=== PATIENT | female | born 1965 | race Caucasian/White ===

== ENCOUNTER 2023-10-01 08:48 | Outpatient (CLI) | payer OTHER, SELFPAY ==
--- OUTSIDE RECORDS SUMMARY | 2023-10-01 08:55 | XMS_ITS ---
Author Organization [facility] Address [address] [place] [address] Care Team Providers Care Geological Engineer Name Role Phone Unavailable Unavailable Unavailable Surgery Details Not on file Complications Check Surgery Details section. Procedure Estimated Blood Loss Check Surgery Details section. Procedure Findings Check Surgery Details section. Procedure Specimens Taken Check Surgery Details section.
--- OUTSIDE RECORDS SUMMARY | 2023-10-01 08:55 | XMS_ITS | Clinical Summary ---
Author Organization [facility] Address [address] [place] [address] Care Team Providers Care Mesh Cutter Name Role Phone Catherine Reid APRN C.N.PKecia Primary Care Provi robert Source Comments Patient records contain information from all sites at [facility]. For routine questions regarding patient records, call [phone] during business hours, M-F 8:00 AM - 5:00 PM Central Time. Record requests for emergency care only can be directed to [phone] at any time.[facility] Allergies Active Allergy Reactions Criticality Noted Date Comments Erythromycin Rash 01/08/2012 Rash, Itching, dizziness, headache Metformin Palpitations 08/15/2022 Sulfa (Sulfonamide Antibiotics) Rash 01/08/2012 Rash, Itching, dizziness, headache Medications Medication Sig Dispensed Refills Start Date End Date Status ibuprofen (ADVIL,MOTRIN) 200 mg tablet Take 800 mg by mouth every 8 (eight) hours as needed. 07/20/2009 Active Accu-Chek Guide strips 2 test daily. 05/27/2019 Active acetaminophen (TYLENOL) 500 mg tablet Take 1,000 mg by mouth every 6 (six) hours as needed for pain. Active neomycin-polymyxin B-dexameth (MAXITROL) 3.5 mg/g-10,000 unit/g-0.1 % ophthalmic ointment Apply to both eyelids twice a day. 3.5 g 1 08/07/2021 Active Additional Information Patient taking differently: As needed, Apply to both eyelids twice a day., Reported on 11/16/2021 DME CPAP DME Order Active fluocinonide (LIDEX) 0.05 % ointmentIndication s:Eczema Apply 1 application topically 2 (two) times a day as needed for irritation or rash. Avoid face and groin. 30 g 1 11/16/2021 Active cholecalciferol (Vitamin D3) 50 mcg (2,000 Unit) tablet Take 100 mcg by mouth daily. Active ascorbic acid, vitamin C, (Vitamin C) 1,000 mg tablet Take 1,000 mg by mouth daily. Active zinc gluconate 50 mg tablet Take 50 mg by mouth daily with breakfast. Active fexofenadine (RAUL) 180 mg tablet Take 180 mg by mouth daily as needed for allergies. Active blood sugar diagnostic strips (Accu-Chek Guide test strips) 1 test daily. 100 test 3 03/25/2023 03/24/2024 Active lancetsIndications :Diabetes Mellitus Type 2 (HCC) Test two times a day 200 each 3 03/25/2023 Active valACYclovir (VALTREX) 1000 mg tablet Take 1 tablet (1,000 mg total) by mouth 3 (three) times a day. 21 tablet 08/21/2023 Active Active Problems Problem Noted Date Diagnosed Date Body Mass Index 40.0 To 44.9 Adult 12/03/2022 Carpal Tunnel Syndrome Bilateral 02/21/2020 Diabetes Mellitus Type 2 02/17/2020 Loss Hearing Sensorineural Bilateral 02/17/2018 Tinnitus Bilateral 02/17/2018 Eczema 02/17/2015 Palpitations 01/24/2015 Overview (02/12/2017): Probably due to undiagnosed sleep apnea. Apnea Sleep Obstructive 12/19/2014 Obesity Body Mass Index 30-39.9 Adult 12/19/2014 Myopia 03/13/2010 Fibrocystic Breast Bilateral 02/03/2009 Cyst Ganglion 06/24/2008 Resolved Problems Problem Noted Date Diagnosed Date Resolved Date COVID-19 Infection 01/08/2021 3 Need Vaccine Immunization 03/17/2019 Encounters Date Type Department Care Team Description 09/16/2023 Orders Only [facility] MNT Catherine Reid, JAYME, C.N.P. Diabetes Mellitus Type 2 (HCC) 08/21/2023 4:30 PM CDT Office Visit Department of Family Medicine, [facility], in [place], [place] [address] [phone] Jaimee Jenkins P.A.-C., P.A. Rash Face (Primary Dx) 08/21/2023 Nurse Triage Department of Family Medicine, [facility], in [place], [place] [address], [place] [phone] Luisa Cheung R.N. Skin Redness from Last 3 Months Immunizations Name Administration Dates Next Due DTaP (Infanrix, Tripedia) 03/23/2008 HepB, Unspecified 12/31/2005 Influenza (IM) Preservative Free 11/28/2008,12/09 Influenza, Unspecified 12/08/2018,2017,01/01/2017,2015,12/09/2014,11/27/2010 PPSV23 11/18/2006 RZV (SHINGRIX) 08/13/2019,03/17/2019 Tdap 02/18/2019,03/23/2008 influenza LAIV (Nasal) (2 ye ars through 49 years) 01/08/2006 influenza vaccine quad (FLUZONE/FLUARIX) (6 months and older)(PF) 12/28/2019 Family History Medical History Relation Name Comments Breast cancer Aunt 1 Maternal Breast cancer Aunt 2 Paternal Alcohol abuse Brother Tr Diabetes Brother Tr Sleep apnea Brother Tr Basal cell carcinoma Father Ovidio COPD Father Ovidio Clotting disorder Father Ovidio Coronary artery disease Father Ovidio Hyperlipidemia Father Ovidio Hypertension Father Ovidio Idiopathic pulmonary fibrosis Father Ovidio Rosacea Father Ovidio Skin cancer Father Ovidio 70 years old at diagnosis Stroke Father Ovidio Breast cancer Father's Sister Millicent 75 yrs old at diagnosis Diabetes Grandmother Maternal Stroke Maternal Grandfather Se Acne Mother Josie Coronary artery disease Mother Josie Depression Mother Ojsie Hypertension Mother Josie Migraines Mother Josie Transient ischemic attack Mother Josie Breast cancer Mother's Sister 1 Heide 75 yrs ol d at diagnosis Rheum arthritis Mother's Sister 2 Catarina Heart attack Paternal Grandfather Stroke Paternal Grandmother Migdalia Acne Sister Mendy Hyperthyroidism Sister Mendy Rosacea Sister Mendy Thyroid disease Sister Mendy Relation Name Status Comments Aunt 1 Maternal Aunt 2 Paternal Brother Tr Nolan Father's Sister Millicent Grandmother Maternal Maternal Grandfather Se Maternal Grandmother Mother Josie Mother's Sister 1 Heide Mother's Sister 2 Catarina Paternal Grandfather Paternal Grandmother Migdalia Sister Mendy Social History Tobacco Use Types Packs/Day Years Used Date Smoking Tobacco: Former Cigarettes 1.5 21.3 0 11/12/1982 - 02/21/2004 Smokeless Tobacco: Never Tobacco Cessation:Counseling Given: Not Answered Comments:I'm glad I quit, but probably have done more damage to my body due to weight gain after quitting Alcohol Use Standard Drinks/Week Comments No 0 (1 standard drink = 0.6 oz pur e alcohol) Humiliation, Afraid, Rape, and Kick questionnair e Answer Date Recorded Within the last year, have y ou been afraid of your partner or ex-partner? No 11/16/2021 Within the last year, have y ou been humiliated or emotionally abused in other ways by your partner or ex-partner? No Within the last year, have y ou been kicked, hit, slapped, or otherwise physically hurt by your partner or ex-partner? No 11/16/2021 Within the last year, have y ou been raped or forced to have any kind of sexual activity by your partner or ex-partner? No 11/16/2021 Social Connection and Isolat ion Panel [NHANES] Answer Date Recorded In a typical week, how many times do you talk on the phone with family, friends, or neighbors? Three times a week 11/16/2021 How often do you get togethe r with friends or relatives? Three times a week 11/16/2021 How often do you attend chur ch or restorationist services? More than 4 times per year 11/16/2021 Do you belong to any clubs o r organizations such as confucianism groups, unions, fraternal or athletic groups, or school groups? Yes 11/16/2021 How often do you attend meet ings of the clubs or organizations you belong to? More than 4 times per year 11/16/2021 Are you , , di vorced, , never , or living with a partner? 11/16/2021 AUDIT-C Answer Date Recorded Q1: How often do you have a drink containing alc ohol? Never 11/16/2021 Average Number of Drinks Not on file 022 Frequency of Binge Drinking Not on file 11/2021 Overall Financial Resource Strain (CARDIA) Answe r Date Recorded How hard is it for you to pa y for the very basics like food, housing, medical care, and heating? Not hard at all 11/27/2022 PHQ-2 Answer Date Recorded PHQ-2 Score 0 11/27/2022 [facility] of Occupat ional Health - Occupational Stress Questionnaire Answer Date Recorded Do you feel stress - tense, restless, nervous, or anxious, or unable to sleep at night because your mind is troubled all the time - these days? Only a little 11/16/2021 Exercise Vital Sign Answer Date Recorde d On average, how many days pe r week do you engage in moderate to strenuous exercise (like a brisk walk)? 2 days 11/27/2022 On average, how many minutes do you engage in exercise at this level? 50 min 11/27/2022 Hunger Vital Sign Answer Date Recorded Within the past 12 months, y ou worried that your food would run out before you got the money to buy more. Never true 11/28/19 Within the past 12 months, t he food you bought just didn't last and you didn't have money to get more. Never true 11/27/2022 PRAPARE - Transportation Answer Date Re corded In the past 12 months, has l ack of transportation kept you from medical appointments or from getting medications? No 11/09 In the past 12 months, has l ack of transportation kept you from meetings, work, or from getting things needed for daily living? No 11/27/2022 Nutrition Answer Date Recorded On average, how many serving s of fruits and vegetables do you eat per day (serving size is equal to 1 cup or approximately the size of a tennis ball)? 0-2 11/27/2022 Dental Answer Date Recorded Dental: Regular Dentist Yes 05/02/19 Employment Answer Date Recorded Employment status Employed and actively working without restrictions 11/27/2022 Housing Stability Answer Date Recorded What is your living situation today? I have a [facility] place to live 11/27/2022 Education Answer Date Recorded What is the highest level of school you have completed or the highest degree you have received? Some college, no degree 11/16/2021 Sex and Gender Information Value Date Recorded Sex Assigned at Female 02/13/2017 6:16 AM SOLUTION COORDINATOR Gender Identity Female 02/13/2017 6:16 AM SOLUTION COORDINATOR Sexual Orientation Straight 02/13/2017 6: 16 AM SOLUTION COORDINATOR Last Filed Vital Signs Vital Sign Reading Time Taken Comments Blood Pressure 116/77 08/21/2023 4:21 PM CDT Pulse 94 08/21/2023 4:21 PM CDT Temperature 36.6 ??C (97.9 ??F) 08/21/2023 4:21 PM CD T Respiratory Rate 18 08/30/2022 2:22 PM CDT Oxygen Saturation 96% 08/30/2022 2:22 PM CDT Inhaled Oxygen Concentration - - Weight 99.9 kg (220 lb 3.8 oz) 12/03/2022 1:52 P M CDT Height 157.3 cm (5' 1.93) 12/03/2022 1:52 PM CD T Body Mass Index 40.37 12/03/2022 1:52 PM CDT Plan of Treatment Health Maintenance Due Date Last Done Comments CT Colonography 1964 Cologuard 1964 FIT 1965 HIV Screening 1965 Hepatitis B Vaccines (2 of 3 - 19+ 3-dose series) 01/28/2006 12/31/2005 Depression Screening (Annual PHQ-2) 03/10/2023 Dilated Eye Exam 03/12/2023 03/12/2022 (Per formed elsewhere), 03/26/2021 (Performed elsewhere), 08/06/2019, Additional history exists Hemoglobin A1C 05/28/2023 11/27/2022, 0911/2021, 02/21/2021, Additional history exists Creatinine Level (Kidney Function Test) 11/28/2023 11/27/2022, 11/16/2021, 05/28/2020, Additional history exists Lipid (Cholesterol) Screening 11/28/2023 11/27/2022, 11/16/2021, 02/17/2020, Additional history exists Urine Albumin 11/28/2023 11/27/2022, 02/07, 02/23/2018, Additional history exists COVID-19 Vaccine (1 - 24 season) 2023 Postponed from 11/08/2022 (Patient Refused) Diabetic Office Visit with Foot Exam 12/04/2023 12/03/2022, 02/21/2021 Pneumococcal vaccine (0-64 years) (2 of 2 - PCV) 12/04/2023 11/18/2006 Postponed from 11/19/2007 (Patient Refused) Visit: Chronic Disease, age 18+ 12/04/2023 12/03/2022 Influenza Vaccine (#1) 2023 , 12/08/2018, 11/21/2017, Additional history exists Mammogram 01/02/2024 01/01/2023, 11/2021, 02/21/2021, Additional history exists Colonoscopy 02/12/2024 02/11/2014 Colorectal Cancer Screening 02/12/2024 Office Visit for Blood Pressure Check / Re-check 08/20/2024 08/21/2023 Cervical Cancer Screening 12/04/20272022, 12/03/2022, 02/16/2018, Additional history exists DTaP,Tdap,and Td Vaccines (4 - Td or Tdap) 02/18/2029 02/18/2019, 03/23/2008, 03/23/2008 Hepatitis C Screening Completed 02/13/2017 Zoster Vaccines Completed 08/13/2019, 03/17/2019 Procedures Procedure Name Priority Date/Time Associated Diagnosis Comments BI BREAST SCREENING BILATERAL WITH TOMOSYNTHESIS RAD - Routine (most inpatients and all outpatients) 01/01/2023 3:13 PM CDT Screening Mammogram Breast Cancer HPV WITH GENOTYPING, PCR, THINPREP Routine 12/03/2022 2:43 PM CDT HEMOGLOBIN A1C, B Routine 11/27/2022 7:1 8 AM CDT Diabetes Mellitus Type 2 (HCC) LIPID PANEL, S Routine 11/27/2022 7:18 AM CDT Diabetes Mellitus Type 2 (HCC) Screening Lipid BASIC METABOLIC PANEL, S/P Routine 11/27/2022 7:18 AM CDT Diabetes Mellitus Type 2 (HCC) ALBUMIN, RANDOM, U Routine 11/27/2022 7: 13 AM CDT Diabetes Mellitus Type 2 (HCC) HCV AB SCRN W/REFLEX TO HCV PCR, S Routine 02/13/2017 5:01 PM SOLUTION COORDINATOR Health Maintenance Examination Adult from Last 3 Months or Most Recently Relevant to Health Maintenance Results * BI Breast Screening Bilateral with Tomosynthesis (01/01/2023 3:13 PM CDT) Anatomical Region Laterality Modality Breast, Breast Imaging RST L OS, Breast Imaging ARZ LOS, Breast Imaging FLA LOS Bilateral Mammography 01/01/2023 4:07 PM CDT Impressions 01/01/2023 4:08 PM CDT Negative. RECOMMENDATION: ??Annual Screening Mammogram ASSESSMENT: ??BI-RADS: 1: Negative. Narrative 01/01/2023 4:08 PM CDT EXAM: ??BI BREAST SCREENING BILATERAL WITH TOMOSYNTHESIS Current study was evaluated with a Computer Aided Detection (CAD) system. INDICATION: ??Screening mammogram. COMPARISON: ??Prior exam(s) were available and reviewed for comparison. DENSITY: ??b. There are scattered areas of fibroglandular density. FINDINGS: ??No mammographic findings of malignancy. Procedure Note Rahul Nicholas M.D. - 01/01/2023 EXAM: BI BREAST SCREENING BILATERAL WITH TOMOSYNTHESIS Current study was evaluated with a Computer Aided Detection (CAD) system. INDICATION: Screening mammogram. COMPARISON: Prior exam(s) were available and reviewed for comparison. DENSITY: b. There are scattered areas of fibroglandular density. FINDINGS: No mammographic findings of malignancy. IMPRESSION: Negative. RECOMMENDATION: Annual Screening Mammogram ASSESSMENT: BI-RADS: 1: Negative. Yue VALIENTE BI PROCEDURE S * HPV with Genotyping, PCR, ThinPrep (12/03/2022 2:43 PM CDT) HPV with Genotyping, ThinPrep, PCR Negative Negative 12/04/2022 5:41 PM CDT MKTO Comment: Negative for high risk HPV by nucleic acid amplification. ??The following high risk HPV types were not detected: 16, 18, 31, 33, 35, 39, 45, 51, 52, 56, 58, 59, 66, and 68 This result does not rule out HPV in the patient, as the sensitivity of the test depends on the timing of the specimen collection and the quality of the specimen. Result should be correlated with patient's history, clinical presentation, and EMPLOYMENT INTERVIEWER cytology report. 12/03/2022 2:43 PM CDT 12/04/2022 6:39 AM CDT Osmar Tran APRNNJessica LAB MICROBI OLOGY - GENERAL ORDERABLES [facility] [place] [address], [facility] MKTO [facility] [place] [address] * (ABNORMAL) Lipid Panel (11/27/2022 7:18 AM CDT) Pathologist [facility] Triglycerides 150(H) mg/dL 11/27/2022 8:15 AM CDT OWAT Comment: ----REFERENCE VALUE---- Normal: <150 mg/dL Borderline High: 150-199 mg/dL High: 200-499 mg/dL Very High: > or =500 mg/dL Cholesterol, Total 184 mg/dL 2022 8:15 AM CDT OWAT Comment: ----REFERENCE VALUE---- Desirable: < 200 mg/dL Borderline High: 200 - 239 mg/dL High: > or = 240 mg/dL Cholesterol, LDL, Calculated 113 mg/dL 11/27/2022 8:15 AM CDT OWAT Comment: ----REFERENCE VALUE---- Desirable: <100 mg/dL Above Desirable: 100-129 mg/dL Borderline High: 130-159 mg/dL High: 160-189 mg/dL Very High: >=190 mg/dL ----ADDITIONAL INFORMATION---- LDL cholesterol calculated using the Martínez/NIH equation. Cholesterol, HDL 44(L) >=50 mg/dL 11/28/19 8:15 AM CDT OWAT Cholesterol, Non-HDL, Calculated 140 mg/dL 11/27/2022 8:15 AM CDT OWAT Comment: ----REFERENCE VALUE---- Desirable: <130 mg/dL Above Desirable: 130-159 mg/dL Borderline High: 160-189 mg/dL High: 190-219 mg/dL Very High: > or =220 mg/dL Fasting (8 HR or more) yes 11/27/2022 7:32 AM CDT OWAT Blood (Blood, Venous) 11/27/2022 7:18 AM CDT 11/27/2022 7:32 AM CDT Catherine Reid APRN, C.N.P. LAB BLOOD A DD-ON Performing Organization Address [facility] de Phone Number [facility] [address] [address], [facility] OWAT [facility] in [place] [address] [place] [id number] * (ABNORMAL) Hemoglobin A1c (11/27/2022 7:18 AM CDT) Hemoglobin A1c, B 7.1(H) 4.2 - 5.6 % 11/27/2022 8:22 AM CDT OWAT Comment: Hemoglobin A1c values greater than or equal to 6.5 percent are diagnostic for diabetes mellitus. ??Diagnosis should be confirmed by repeat testing. ??In diabetic patients, HbA1c goals should be discussed with healthcare provider. Blood (Blood, Venous) 11/27/2022 7:18 AM CDT 11/27/2022 7:32 AM CDT Catherine Reid APRN, C.N.P. LAB BLOOD A DD-ON Performing Organization Address City/[facility]/ZIP Co de Phone Number [facility] [address] [place] [id number], [facility] OWAT [facility] in [place] [address] [place] [address] * (ABNORMAL) Basic Metabolic Panel (11/27/2022 7:18 AM CDT) Potassium, P 4.9 3.6 - 5.2 mmol/L 11/27/2022 8:15 AM CDT OWAT Sodium, P 140 135 - 145 mmol/L 11/27/2022 8:15 AM CDT OWAT Chloride, P 103 98 - 107 mmol/L 11/27/2022 8:15 AM CDT OWAT Bicarbonate, P 26 22 - 29 mmol/L 11/27/2022 8:15 AM CDT OWAT Anion Gap, P 11 7 - 15 11/27/2022 8:15 AM CDT OWAT BUN (Blood Urea Nitrogen), P 13 6 - 21 mg/dL 11/27/2022 8:15 AM CDT OWAT Creatinine 0.79 0.59 - 1.04 mg/dL 11/27/2022 8:15 AM CDT OWAT Estimated GFR (eGFR) 87 >=60 mL/min/BSA 11/27/2022 8:15 AM CDT OWAT Comment: Estimated GFR calculated using the 2020 CKD_EPI creatinine equation. Calcium, Total, P 9.5 8.6 - 10.0 mg/dL 11/27/2022 8:15 AM CDT OWAT Glucose, P 171(H) 70 - 140 mg/dL 11/27/2022 8:15 AM CDT OWAT Blood (Blood, Venous) 11/27/2022 7:18 AM CDT 11/27/2022 7:32 AM CDT Catherine Reid APRN C.N.PKecia LAB BLOOD A DD-ON [facility] [address] [place] [address], [facility] OWAT [facility] [place] [address] [place] [address] * Albumin, Random, Urine (11/27/2022 7:13 AM CDT) Microalbumin <12.0 mg/L 11/27/2022 8:37 AM CDT OWAT Comment:If clinically indica gabrielle, contact the lab for additional testing. Creatinine 135 mg/dL 11/27/2022 8:37 AM CDT OWAT Albumin/Creatinine Ratio <9 <25 mg/g 11/27/2022 8:37 AM CDT OWAT Comment: This ratio may not correspond with the reference range because one or both of the values used to calculate the ratio was above or below the quantification limits. Urine (Urine, Midstream) 11/27/2022 7:13 AM CDT 11/27/2022 7:51 AM CDT Catherine Reid APRN, C.N.P. LAB URINE O RDERABLES Performing Organization Address City/[facility]/ZIP Co de Phone Number [facility] [address] [place] [address], [facility] OWAT [facility] [place] [address] [place] [address] * HCV Ab Scrn w/Reflex to HCV PCR (02/13/2017 5:01 PM SOLUTION COORDINATOR) HCV Ab Screen, S Negative Negative 02/14/2017 8:25 AM SOLUTION COORDINATOR [facility] Comment:Jbmnmy-hi-yoodua rat io is <1.00. Blood (Blood, Venous) 02/13/2017 5:01 PM SOLUTION COORDINATOR 02/14/2017 7:09 AM SOLUTION COORDINATOR Yee Fernandez M.D. LAB MICROBIOLOGY - B LOOD ORDERABLES [facility] [address] [place] [address] from Last 3 Months or Most Recently Relevant to Health Maintenance Care Teams Mesh Cutter Relationship Specialty Start Date End Date Catherine Reid APRN, C.N.P. [address] [place] [phone] PCP - General 05/25/20
--- OUTSIDE RECORDS SUMMARY | 2023-10-01 08:55 | XMS_ITS | Encounter Summary ---
Author Organization [facility] Address [address] [place] [address] Care Team Providers Care Technology Advisor Name Role Phone Catherine Reid APRN, C.N.P. Primary Care Provi robert Encounter Details Date Type Department Care Team (Late st Contact Info) Description 09/16/2023 Orders Only [facility] PCP [facility] MNT Catherine Reid APRN, C.N.P. [address] [place] [phone] Diabetes Mellitus Type 2 (HCC) Social History Tobacco Use Types Packs/Day Years Used Date Smoking Tobacco: Former Cigarettes 1.5 21.3 0 11/12/1982 - 02/21/2004 Smokeless Tobacco: Never Comments:I'm glad I quit, bu t probably have done more damage to my [...] 11/16/2021 How often do you attend chur or worship services? More than 4 times per year 11/16/2021 Do you belong to any clubs o r organizations such as adventism groups, unions, fraternal or athletic groups, or [...] Answer Date Recorded PHQ-2 Score 0 11/27/2022 [facility] of Occupat ional Health - Occupational Stress [...] the money to buy more. Never true 09/20/20 23 Within the past 12 months, t he [...] your living situation today? I have a [facility] place to live 11/27/2022 Education Answer Date Recorded What is the highest level of school you have completed or the highest degree you have received? Some college, no degree 11/16/2021 Sex and Gender Information Value Date Recorded Sex Assigned at Female 02/13/2017 6:16 AM MAT MACHINE TENDER Gender Identity Female 02/13/2017 6:16 AM MAT MACHINE TENDER Sexual Orientation Straight 02/13/2017 6: 16 AM MAT MACHINE TENDER documented as of this encounter Plan of Treatment Scheduled Orders Name Type Priority Associated Diagnoses Orde r Schedule Albumin, Random, Urine Lab Routine Diabetes Mellitus Type 2 (HCC) Expected: 09/30/2023, Expires: 03/14/2024 Basic Metabolic Panel Lab Routine Diabetes Mellitus Type 2 (HCC) Expected: 09/30/2023, Expires: 03/14/2024 Lipid Panel Lab Routine Diabetes Mellitus Type 2 (HCC) Expected: 09/30/2023, Expires: 03/14/2024 documented as of this encounter Visit Diagnoses Diagnosis Diabetes Mellitus Type 2 (HCC) documented in this encounter Care Teams Technology Advisor Relationship Specialty Start Date End Date Catherine Reid APRN, C.N.P. [address], [place] [phone] PCP - General 05/25/20 documented as of this encounter
--- OUTSIDE RECORDS SUMMARY | 2023-10-01 08:55 | XMS_ITS | Encounter Summary ---
Author Organization [facility] Address [address] [place] [address] Care Team Providers Care Open Source Developer Name Role Phone Catherine Reid APRN C.N.PKecia Primary Care Provi robert Reason for Visit * Reason Comments Other Area below bottom li p is red, raised, has grown in size in the past few days, valtrex has helped in the past * Appointment Request (Routine) - Closed Specialty Diagnoses / Procedures Referred By Danielle t Referred To Contact Family Medicine Referral ID Status Reason Start Date Expiration Date Visits Re quested Visits Authorized [id number] Closed 08/21/2023 08/20/2024 1 1 Encounter Details Date Type Department Care Team (Late st Contact Info) Description 08/21/2023 4:30 PM CDT Office Visit Department of Family Medicine, [facility], in [place], [place] [address] [phone] Jaimee Jenkins, PLes., P.A. [address], [place] [phone] Rash Face (Primary Dx) Social History Tobacco Use Types Packs/Day Years [...] week 11/16/2021 How often do you attend [facility] or adventist services? More than 4 times per year 11/16/2021 Do you belong to any clubs o r organizations such as yarsani groups, unions, fraternal or athletic groups, or [...] Answer Date Recorded PHQ-2 Score 0 11/27/2022 [facility] - Occupational [...] your living situation today? I have a [facility] place to live 11/27/2022 Education Answer Date Recorded What is the highest level of school you have completed or the highest degree you have received? Some college, no degree 11/16/2021 Sex and Gender Information Value Date Recorded Sex Assigned at Female 02/13/2017 6:16 AM INSTRUMENTATION CHEMIST Gender Identity Female 02/13/2017 6:16 AM INSTRUMENTATION CHEMIST Sexual Orientation Straight 02/13/2017 6: 16 AM INSTRUMENTATION CHEMIST documented as of this encounter Last Filed Vital Signs Vital Sign Reading Time Taken Comments Blood Pressure 116/77 08/21/2023 4:21 PM CDT Pulse 94 08/21/2023 4:21 PM CDT Temperature 36.6 ??C (97.9 ??F) 08/21/2023 4:21 PM CD T Respiratory Rate - - Oxygen Saturation - - Inhaled Oxygen Concentration - - Weight - - Height - - Body Mass Index - - documented in this encounter Progress Notes * Jaimee Jenkins P.A.-C., P.A. - 08/21/2023 4:30 PM CDT SUBJECTIVE CHIEF COMPLAINT/REASON FOR VISIT Other (Area below bottom lip is red, raised, has grown in size in the past few days, valtrex has helped in the past) HISTORY OF PRESENT ILLNESS Migdalia Banerjee is a 58 y.o. female who presents for evaluation of facial rash. She reports that she developed a small spot just below her lip 2 days ago. This has worsened over the last couple of days. She has had similar issues in the past and has been treated with Valtrex in the past which has helped. She denies fevers/chills. Patient Active Problem List Diagnosis Apnea Sleep Obstructive Eczema Myopia Obesity Body Mass Index 30-39.9 Adult Palpitations Cyst Ganglion Fibrocystic Breast Bilateral Loss Hearing Sensorineural Bilateral Tinnitus Bilateral Diabetes Mellitus Type 2 (HCC) Carpal Tunnel Syndrome Bilateral Body Mass Index 40.0 To 44.9 Adult (HCC) CURRENT MEDICATIONS Current Outpatient Medications Medication Sig Dispense Refill Accu-Chek Guide strips 2 test daily. acetaminophen (TYLENOL) 500 mg tablet Take 1,000 mg by mouth every 6 (six) hours as needed for pain. ascorbic acid, vitamin C, (Vitamin C) 1,000 mg tablet Take 1,000 mg by mouth daily. blood sugar diagnostic strips (Accu-Chek Guide test strips) 1 test daily. 100 test 3 cholecalciferol (Vitamin D3) 50 mcg (2,000 Unit) tablet Take 100 mcg by mouth daily. DME CPAP DME Order fexofenadine (RAUL) 180 mg tablet Take 180 mg by mouth daily as needed for allergies. fluocinonide (LIDEX) 0.05 % ointment Apply 1 application topically 2 (two) times a day as needed for irritation or rash. Avoid face and groin. 30 g 1 ibuprofen (ADVIL,MOTRIN) 200 mg tablet Take 800 mg by mouth every 8 (eight) hours as needed. lancets Test two times a day 200 each 3 neomycin-polymyxin B-dexameth (MAXITROL) 3.5 mg/g-10,000 unit/g-0.1 % ophthalmic ointment Apply to both eyelids twice a day. (Patient taking differently: as needed. Apply to both eyelids twice a day.) 3.5 g 1 valACYclovir (VALTREX) 1000 mg tablet Take 1 tablet (1,000 mg total) by mouth 3 (three) times a day. 21 tablet 0 zinc gluconate 50 mg tablet Take 50 mg by mouth daily with breakfast. No current facility-administered medications for this visit. ALLERGIES/CONTRAINDICATIONS Allergies Allergen Reactions Erythromycin Rash Rash, Itching, dizziness, headache Metformin Palpitations Sulfa (Sulfonamide Antibiotics) Rash Rash, Itching, dizziness, headache OBJECTIVE BP 116/77 Pulse 94 Temp 36.6 ??C LMP 11/19/2017 (Approximate) PHYSICAL EXAMINATION General: No acute distress. Patient is polite and cooperative. Appropriately dressed and normal hygiene. Skin: vesicular rash overlying the lower lip, crossing the chelsy border. HEENT: Normocephalic. Pupils equal, conjunctiva clear. Musculoskeletal: Sensation intact, with no cyanosis, clubbing or edema to extremities. Mental Health: Alert and oriented. Normal thought form and content. ASSESSMENT / PLAN #1 Rash Face - Consistent with HSV. Will treat with Valtrex. She will follow-up with her PCP if symptoms persistor worsen. Electronically signed by: Jaimee Jenkins P.A.-C., P.A. 08/21/23 5:40 PM CDT documented in this encounter Plan of Treatment Not on file documented as of this encounter Visit Diagnoses Diagnosis Rash Face- Primary documented in this encounter Care Teams Open Source Developer Relationship Specialty Start Date End Date Catherine Reid APRN, C.N.P. [address] [place] [phone] PCP - General 05/25/20 documented as of this encounter
--- OUTSIDE RECORDS SUMMARY | 2023-10-01 08:55 | XMS_ITS | Encounter Summary ---
Author Organization [facility] Address [address] [place] [address] Care Team Providers Care Slinger Sequins Name Role Phone Catherine Reid APRN C.N.P. Primary Care Provi robert Reason for Visit * Reason Onset Date Comments Skin Redness 08/21/2023 Encounter Details Date Type Department Care Team (Late st Contact Info) Description 08/21/2023 Nurse Triage Department of Family Medicine, [facility], in [place], [place] [address] [place] [phone] Luisa Cheung, R.N. Skin Redness Social History Tobacco Use Types Packs/Day Years [...] How often do you attend chur or islam services? More than 4 times per year 11/16/2021 Do you belong to any clubs o r organizations such as mosque groups, unions, fraternal or athletic groups, or [...] Answer Date Recorded PHQ-2 Score 0 11/27/2022 [facility] - [...] your living situation today? I have a [facility] place to live 11/27/2022 Education Answer Date Recorded What is the highest level of school you have completed or the highest degree you have received? Some college, no degree 11/16/2021 Sex and Gender Information Value Date Recorded Sex Assigned at Female 02/13/2017 6:16 AM STONE MILL OPERATOR Gender Identity Female 02/13/2017 6:16 AM STONE MILL OPERATOR Sexual Orientation Straight 02/13/2017 6: 16 AM STONE MILL OPERATOR documented as of this encounter Miscellaneous Notes * Telephone Encounter - Luisa Cheung R.N. - 08/21/2023 9:59 AM CDT Chief Complaint / Reason for Call Patient is a 58 y.o. female calling regarding Skin Redness. Assessment Concern: Patient has a sore on face that is tender and weeping drainage. No fevers. Size of quarter. Present for: Friday Home cares tried: Monitoring Calling to request: appointment The recommended disposition is See a health care provider within 4 hours. Patient was scheduled for an acute appointment via One [employer] Scheduling. Reason for Disposition [1] Looks infected (spreading redness, pus) AND [2] diabetes mellitus or weak immune system (e.g., HIV positive, cancer chemo, splenectomy, organ transplant, chronic steroids) Protocols used: [id number] Care Advice Patient/Caregiver understands and will follow care advice?: Yes, able to teach back [id number] Nurse Luisa Connors Aug 21, 2023 10:02 AM Care Advice SEE HCP (OR PCP TRIAGE) WITHIN 4 HOURS: * IF OFFICE WILL BE OPEN: You need to be seen within the next 3 or 4 hours. Call your doctor (or FAMILY SERVICES COORDINATOR/PA) now or as soon as the office opens. * IF OFFICE WILL BE CLOSED AND NO PCP (PRIMARY CARE PROVIDER) SECOND-LEVEL TRIAGE: You need to be seen within the next 3 or 4 hours. A nearby Urgent Care Center (UCC) is often a good source of care. Another choice is to go to the ED. Go sooner if you become worse. * IF OFFICE WILL BE CLOSED AND PCP SECOND-LEVEL TRIAGE REQUIRED: You may need to be seen. Your doctor (or FAMILY SERVICES COORDINATOR/PA) will want to talk with you to decide what's best. I'll page the on-call provider now. If you haven't heard from the provider (or me) within 30 minutes, call again. NOTE: If on-call provider can't be reached, send to UCC or ED. NOTE TO TRIAGER: * Use nurse judgment to select the most appropriate source of care. * Consider both the urgency of the patient's symptoms AND what resources may be needed to evaluate and manage the patient. SOURCES OF CARE: * ED: Patients who may need surgery or hospital admission need to be sent to an ED. So do most patients with serious symptoms or complex medical problems. * UCC: Some UCCs can manage patients who are stable and have less serious symptoms (e.g., minor illnesses and injuries). The triager must know the UCC capabilities before sending a patient there. If unsure, call ahead. * OFFICE: If patient sounds stable and not seriously ill, consult PCP (or follow your office policy) to see if patient can be seen NOW in office. CALL BACK IF: * You become worse CARE ADVICE given per Sores (Adult) guideline. documented in this encounter Plan of Treatment Not on file documented as of this encounter Visit Diagnoses Not on filedocumented in this encounter Care Teams Slinger Sequins Relationship Specialty Start Date End Date Catherine Reid APRN, C.N.P. [address] [place] [phone] PCP - General 05/25/20 documented as of this encounter
--- OUTSIDE RECORDS SUMMARY | 2023-10-01 08:55 | XMS_ITS | Encounter Summary ---
Author Organization [facility] Address [address] [place] [address] Care Team Providers Care Campus Ambassador Name Role Phone Catherine Reid APRN C.NKeciaPKecia Primary Care Provi robert Encounter Details Date Type Department Care Team (Late st Contact Info) Description 01/23/2016 Historical Ophthalmology [facility] Ronald Vera Jr., M.D. [address] [place] [phone] Social History Tobacco Use Types Packs/Day Years Used Date Smoking Tobacco: Never Assessed Sex and Gender Information Value Date Recorded Sex Assigned at Female 02/13/2017 6:16 AM VASCULAR NURSE Gender Identity Female 02/13/2017 6:16 AM VASCULAR NURSE Sexual Orientation Straight 02/13/2017 6: 16 AM VASCULAR NURSE documented as of this encounter Progress Notes * Ronald Vera M.D. - 01/23/2016 2:50 PM CST Eye General CHIEF COMPLAINT CE HISTORY OF PRESENT ILLNESS Here for an exam as has been three years. About 6 wks ago had an incident when reading a book and her eyes got blurry for a while. removed glasses, put them on. Nothing cleared them up. Just has not seen as well since that time. Sometimes her eyes will water for no reason and her eyes will also itch really bad. IMPRESSION / REPORT / PLAN #1 Myopia, presbyopia MR #2 ? Eyestrain Think blink. Avoid fans. Avoid glare RTO 1 year DIAGNOSIS #1 Myopia, presbyopia #2 ? Eyestrain CDM Reports - EYEGEN Id: [id number] Status: Fnl documented in this encounter Plan of Treatment Not on file documented as of this encounter Visit Diagnoses Not on filedocumented in this encounter Additional Health Concerns Infection Onset Date Last Indicated Resolved Time COVID19 Pending 12/21/2019 12/21/2019 12/22/2019 4 :09 AM CDT COVID19 Pending 12/14/2020 12/15/2020 12/16/2020 8 :27 AM CDT COVID19 Pending 01/07/2021 01/07/2021 01/07/2021 1 0:59 PM CDT COVID19 Comment:Patient has met criteria for release from isolation. Please see nursing note for further details. ?? Janina Eugene R.N. 01/07/2021 01/07/2021 01/16/2021 3:[address] documented as of this encounter Care Teams Campus Ambassador Relationship Specialty Start Date End Date Catherine Reid APRN, C.N.P. [address] [place] [phone] PCP - General 05/25/20 documented as of this encounter
--- OUTSIDE RECORDS SUMMARY | 2023-10-01 08:55 | XMS_ITS | Referral Summary ---
Author Organization [facility] Address [address] [place] [address] Care Team Providers Care Television Agent Name Role Phone Catherine Reid APRN, C.N.P. Primary Care Provi robert Source Comments Patient records contain information from all sites at [facility]. For routine questions regarding patient records, call [phone] during business hours, M-F 8:00 AM - 5:00 PM Central Time. Record requests for emergency care only can be directed to [phone] at any time.[facility] Encounters Date Type Department Care Team Description 09/16/2023 Orders Only [facility] PCP [facility] MNT Catherine Reid APRN, C.N.P. Diabetes Mellitus Type 2 (HCC) 08/21/2023 4:30 PM CDT Office Visit Department of Family [facility], [facility], in [place], [place] [address] [place] [phone] Jaimee Jenkins P.A.-C., P.A. Rash Face (Primary Dx) 08/21/2023 Nurse Triage Department of Family [facility], [facility], in [place], [place] [address] [place] [phone] Luisa Cheung R.N. Skin Redness from Last 3 Months Allergies Active Allergy Reactions Criticality Noted Date [...] by mouth daily with breakfast. Active fexofenadine (RUAL) 180 mg tablet Take 180 mg by [...] Infection 01/08/2021 3 Need Vaccine Immunization 03/17/2019 Immunizations Name Administration Dates Next Due DTaP (Infanrix, Tripedia) 03/23/2008 HepB, Unspecified 12/31/2005 Influenza (IM) Preservative Free 11/28/2008,12/09 Influenza, Unspecified 12/08/2018,2017,01/01/2017,2015,12/09/2014,11/27/2010 PPSV23 11/18/2006 RZV (SHINGRIX) 08/13/2019,03/17/2019 Tdap 02/18/2019,03/23/2008 influenza LAIV (Nasal) (2 ye ars through 49 years) 01/08/2006 influenza vaccine quad (FLUZONE/FLUARIX) (6 months and older)(PF) 12/28/2019 Social History Tobacco Use Types Packs/Day Years [...] How often do you attend chur or amish services? More than 4 times per year 11/16/2021 Do you belong to any clubs o r organizations such as catholic groups, unions, fraternal or athletic groups, or [...] Answer Date Recorded PHQ-2 Score 0 11/27/2022 [facility] Occupat ional Health - [...] your living situation today? I have a [facility] place to live 11/27/2022 Education Answer Date Recorded What is the highest level of school you have completed or the highest degree you have received? Some college, no degree 11/16/2021 Sex and Gender Information Value Date Recorded Sex Assigned at Female 02/13/2017 6:16 AM BANDER OPERATOR Gender Identity Female 02/13/2017 6:16 AM BANDER OPERATOR Sexual Orientation Straight 02/13/2017 6: 16 AM BANDER OPERATOR Last Filed Vital Signs Vital Sign Reading [...] 12/03/2022 1:52 PM CDT Plan of Treatment Not on file Procedures Procedure Name Priority Date/Time Associated Diagnosis [...] HCV PCR, S Routine 02/13/2017 5:01 PM BANDER OPERATOR Health Maintenance Examination Adult from Last 3 [...] Screening Mammogram ASSESSMENT: BI-RADS: 1: Negative. Yue Laboy M.D. [facility] BI PROCEDURE S * HPV with Genotyping, [...] correlated with patient's history, clinical presentation, and [facility]HER cytology report. 12/03/2022 2:43 PM CDT 12/04/2022 6:39 AM CDT Osmar Tran APRNNJessica LAB [facility] - GENERAL ORDERABLES [facility] [address] [place] [address], [facility] [address] [address] * (ABNORMAL) Lipid Panel (11/27/2022 7:18 AM CDT) Triglycerides 150(H) mg/dL 11/27/2022 8:15 AM CDT [...] Reid APRN C.N.PKecia LAB BLOOD A DD-ON [facility] [address] [place] [address], [place] [facility] [place] [address] [place] [address] * (ABNORMAL) Hemoglobin A1c (11/27/2022 7:18 AM [...] 7:18 AM CDT 11/27/2022 7:32 AM CDT Osmar Tran APRNNJessica LAB BLOOD A DD-ON [facility] [address] [place] [address], [facility] [place] [address] [place] [address] * (ABNORMAL) Basic Metabolic Panel (11/27/2022 7:18 [...] 7:18 AM CDT 11/27/2022 7:32 AM CDT Vaughn Tran APRN.N.P. LAB BLOOD A DD-ON Performing Organization Address [facility] Co de Phone Number [facility] [address] [place] [address], [place] [facility] [facility] [place] [address] [place] [address] * Albumin, Random, Urine (11/27/2022 7:13 AM [...] CDT 11/27/2022 7:51 AM CDT Catherine Reid APRN C.N.P. LAB URINE O RDERABLES Performing Organization Address City/[facility]/ZIP Co de Phone Number [facility] [address] [place] [address], [place] [facility] [facility] [place] [address], [place] [address] * HCV Ab Scrn w/Reflex to HCV PCR (02/13/2017 5:01 PM BANDER OPERATOR) HCV Ab Screen, S Negative Negative 02/14/2017 8:25 AM BANDER OPERATOR [facility] Comment:Xedoes-sa-rtdqyz rat io is <1.00. Blood (Blood, Venous) 02/13/2017 5:01 PM BANDER OPERATOR 02/14/2017 7:09 AM BANDER OPERATOR Yee Fernandez M.D. LAB MICROBIOLOGY - B LOOD ORDERABLES [facility] [address] [place] [id number] from Last 3 Months or Most Recently Relevant to Health Maintenance Care Teams Television Agent Relationship Specialty Start Date End Date Catherine Reid APRN, C.N.P. [address] [place] [phone] PCP - General 05/25/20
--- OUTSIDE RECORDS SUMMARY | 2023-10-01 08:55 | XMS_ITS | Clinical Summary ---
Author Organization [facility] Address [place], [place] [address] Care Team Providers Care Media Buyer Name Role Phone Ivania Mendiola Primary Care Provider Allergies Active Allergy Reactions Criticality Noted Date Comments Erythromycin Rash,Itching,Dizziness 02/09/2014 Sulfa (Sulfonamide Antibiotics) Rash,Itching,Dizziness 02/09/2014 Medications Medication Sig Dispensed Refills Start Date End Date Status ibuprofen (ADVIL) 200 mg tablet Take 200 mg by mouth 4 times daily if needed. Active multivitamin (MVI) tabletIndications: vitamin deficiency prevention Take 1 tablet by mouth once daily. Indications: VITAMIN DEFICIENCY PREVENTION Active ACETAMINOPHEN/PAMA BROM (MIDOL ORAL) Take by mouth. As needed Active HYDROcodone-acetam inophen, 5-325 mg, (NORCO) per tabletIndications: Trigger finger of right thumb Take 1-2 tablets by mouth every 4 hours if needed for Pain Max acetaminophen dose: 4000 mg in 24 hrs. 20 tablet 03/21/2017 Active Active Problems No known active problems Immunizations Name Administration Dates Next Due Pneumococcal Poly,23-Valent (Pneumovax) 11/19/19 07 Tdap 03/23/2008 Social History Tobacco Use Types Packs/Day Years Used Date Smoking Tobacco: Former Smokeless Tobacco: Never Sex and Gender Information Value Date Recorded Sex Assigned at Not on file Gender Identity Not on file Sexual Orientation Not on file Obstetrics History Last Filed Vital Signs Vital Sign Reading Time Taken Comments Blood Pressure 124/67 01/11/2020 8:49 AM TEXTILE TECHNOLOGIST Pulse 82 01/11/2020 9:02 AM TEXTILE TECHNOLOGIST Temperature 36.7 ??C (98.1 ??F) 01/11/2020 6:26 AM CS T Respiratory Rate 19 01/11/2020 6:26 AM TEXTILE TECHNOLOGIST Oxygen Saturation 98% 01/11/2020 9:02 AM TEXTILE TECHNOLOGIST Inhaled Oxygen Concentration - - Weight 100.4 kg (221 lb 5.5 oz) 01/11/2020 6:26 AM TEXTILE TECHNOLOGIST Height 158.8 cm (5' 2.5) 01/11/2020 6:26 AM TEXTILE TECHNOLOGIST Body Mass Index 39.84 01/11/2020 6:26 AM TEXTILE TECHNOLOGIST Plan of Treatment Health Maintenance Due Date Last Done Comments Depression screening for age 12+ 1976 HIV for age 15-65 01/19/1979 Hepatitis C screening for ag e 18-79 01/19/1982 Pap test for age 21-65 01/19/1985 Colonoscopy through age 75 01/19/2009 Lipids for age 45-75 01/19/2009 Mammogram for age 45-75 01/19/2009 Zoster (shingles) series for age 50+ (1 of 2) 01/19/2014 Tetanus booster 03/23/2018 03/23/2008 BMI (ht and wt on same day) for age 18+ 11/14/2018 11/14/2017 COVID-19 vaccine series (2022- season) 2022 Influenza for age 50-64 11/09/2023 Pneumococcal series for age 6-64 Aged Out 11/19/19 07 No longer eligible based on patient's age to complete this topic Tdap Completed 03/23/2008 Advance Directives * Full Code (Latest Code Status on File) Date Activated Date Inactivated Comments 02/11/2014 6:07 AM 02/11/2014 11:51 AM Care Teams Media Buyer Relationship Specialty Start Date End Date Ivania Mendiola PA PCP - General Physician Contact Center Engineer 11/10/18
== END 2023-10-01 08:49 | disposition home or self-care (01) ==
PROVIDERS: PCP Registered Nurse; Visit Provider Registered Nurse
DX: Z00.00 Encounter for general adult medical examination without abnormal findings (principal); E11.9 Type 2 diabetes mellitus without complications; Z13.6 Encounter for screening for cardiovascular disorders; Z13.29 Encounter for screening for other suspected endocrine disorder
CPT/HCPCS: 80053; 80061; 84443

== ENCOUNTER 2023-12-02 13:47 | Outpatient (CLI) | payer OTHER, SELFPAY ==
--- OUTSIDE RECORDS SUMMARY | 2023-12-02 13:50 | XMS_ITS | Clinical Summary ---
Author Organization [facility] Address [address] [place] [address] Care Team Providers Care Dynamite Packing Machine Feeder Name Role Phone Catherine Reid APRN C.N.PKecia Primary Care Provi robert Source Comments Patient records contain information from all sites at [facility]. For routine questions regarding patient records, call [phone] during business hours, M-F 8:00 AM - 5:00 PM Central Time. Record requests for emergency care only can be directed to [phone] at any time.[facility] Allergies Active Allergy Reactions Criticality Noted Date [...] Encounters Date Type Department Care Team Description 10/07/2023 Clinical Communication Department of Family Medicine, [facility], in [place], [place] [address] [address] Catherine Reid, JAMYE, C.N.P. 09/16/2023 Orders Only [facility] MNT Catherine Reid, ARBORIST, C.N.P. Diabetes Mellitus Type 2 (HCC) from Last 3 Months Immunizations Name Administration Dates Next Due DTaP (Infanrix, Tripedia) 03/23/2008 HepB, Unspecified 12/31/2005 Influenza, Unspecified 12/08/2018,2017,01/01/2017,2015,12/09/2014,11/27/2010 PPSV23 11/18/2006 RZV (SHINGRIX) 08/13/2019,03/17/2019 Tdap 02/18/2019,03/23/2008 influenza LAIV (Nasal) (2 ye ars through 49 years) 01/08/2006 influenza trivalent vaccine (6 months and older)(PF) 11/28/2008,12/29/2007 influenza vaccine quad (FLUZONE/FLUARIX) (6 months and [...] Coronary artery disease Mother Josie Depression Mother Josie Hypertension Mother Josie Migraines Mother Josie Transient ischemic attack Mother Josie Breast cancer Mother's Sister 1 Heide 75 yrs ol d at diagnosis Rheum arthritis Mother's Sister 2 Catarina Heart attack Paternal Grandfather Stroke Paternal Grandmother Migdalia Acne Sister Mendy Hyperthyroidism Sister Mendy Rosacea Sister Mendy Thyroid disease Sister Mendy Relation Name Status Comments Aunt 1 Maternal Aunt 2 Paternal Brother Tr Father Ovidio Father's Sister Millicent Grandmother Maternal Maternal Grandfather [...] often do you attend chur ch or nondenominational services? More than 4 times per year 11/16/2021 Do you belong to any clubs o r organizations such as advent groups, unions, fraternal or athletic groups, or [...] Answer Date Recorded PHQ-2 Score 0 11/27/2022 [facility]at [facility] - Occupational Stress Questionnaire Answer Date Recorded [...] your living situation today? I have a [facility] place to live 11/27/2022 Education Answer Date Recorded What is the highest level of school you have completed or the highest degree you have received? Some college, no degree 11/16/2021 Sex and Gender Information Value Date Recorded Sex Assigned at Female 02/13/2017 6:16 AM POWDERED METAL SUPERVISOR Gender Identity Female 02/13/2017 6:16 AM POWDERED METAL SUPERVISOR Sexual Orientation Straight 02/13/2017 6: 16 AM POWDERED METAL SUPERVISOR Last Filed Vital Signs Vital Sign Reading [...] Additional history exists Hemoglobin A1C 05/28/2023 11/27/2022, 11/2021, 02/21/2021, Additional history exists COVID-19 Vaccine ( season) 2023 Creatinine Level (Kidney Function Test) 11/28/2023 11/27/2022, 11/16/2021, 05/28/2020, Additional history exists Lipid (Cholesterol) Screening 11/28/2023 11/27/2022, 11/16/2021, 02/17/2020, Additional history exists Urine Albumin 11/28/2023 11/27/2022, 02/07, 02/23/2018, Additional history exists Diabetic Office Visit with Foot Exam 12/04/2023 12/03/2022, 02/21/2021 Pneumococcal vaccine (0-64 years) (2 of 2 - PCV) 12/04/2023 11/18/2006 Postponed from 11/19/2007 (Patient Refused) Visit: Chronic Disease, age 18+ 12/04/2023 12/03/2022 Influenza Vaccine (#1) 2023 , 12/08/2018, 11/21/2017, Additional history exists Mammogram 01/02/2024 01/01/2023, 09/0 11/2021, 02/21/2021, Additional history exists Colonoscopy 02/12/2024 [...] HCV PCR, S Routine 02/13/2017 5:01 PM POWDERED METAL SUPERVISOR Health Maintenance Examination Adult from Last 3 [...] ASSESSMENT: BI-RADS: 1: Negative. Yue Laboy M.D. Candice BI PROCEDURE S * HPV with Genotyping, [...] correlated with patient's history, clinical presentation, and RESIN COATER cytology report. 12/03/2022 2:43 PM CDT 12/04/2022 6:39 AM CDT Catherine Reid APRN, C.N.P. LAB MICROBI OLOGY - GENERAL ORDERABLES [facility] [address] [place] [address], [place] [address] [address] * (ABNORMAL) Lipid Panel (11/27/2022 7:18 AM [...] LAB BLOOD A DD-ON Performing Organization Address [facility] Co de Phone Number [facility] [address] [place] [address], [place] [facility] [place] [address] [address] * (ABNORMAL) Hemoglobin A1c (11/27/2022 7:18 AM [...] LAB BLOOD A DD-ON Performing Organization Address City/[facility]/ZIP Co de Phone Number [facility] [address] [place] [address], [place] [facility] [address] [place] [address] * (ABNORMAL) Basic Metabolic Panel (11/27/2022 7:18 [...] 11/27/2022 7:32 AM CDT Catherine Reid APRN C.N.P. LAB BLOOD A DD-ON [facility] [address] [address], [place] [facility] [address] [place] [address] * Albumin, Random, Urine (11/27/2022 7:13 AM [...] 11/27/2022 7:51 AM CDT Catherine Reid APRN, C.NKeciaP. LAB URINE O RDERABLES [facility] [address] [place] [address], [place] [facility] [facility] [place] [address] [place] [address] * HCV Ab Scrn w/Reflex to HCV PCR (02/13/2017 5:01 PM POWDERED METAL SUPERVISOR) HCV Ab Screen, S Negative Negative 02/14/2017 8:25 AM POWDERED METAL SUPERVISOR [facility] Comment:Rzenbc-ag-xwjxpq rat io is <1.00. Blood (Blood, Venous) 02/13/2017 5:01 PM POWDERED METAL SUPERVISOR 02/14/2017 7:09 AM POWDERED METAL SUPERVISOR Yee Fenrandez M.D. LAB MICROBIOLOGY - B LOOD ORDERABLES Performing Organization Address City/[facility]/ZIP Co de Phone Number [facility] [address] [place] [address] from Last 3 Months or Most Recently Relevant to Health Maintenance Care Teams Dynamite Packing Machine Feeder Relationship Specialty Start Date End Date Catherine Reid APRN, C.N.P. [address], [place] [address] PCP - General 05/25/20
--- OUTSIDE RECORDS SUMMARY | 2023-12-02 13:50 | XMS_ITS | Clinical Summary ---
Author Organization [facility] Address [place], [place] [address] Care Team Providers Care Second Miller Name Role Phone Ivania Mendiola Primary Care [...] Comments Blood Pressure 124/67 01/11/2020 8:49 AM ANALYST BUSINESS ANALYSIS Pulse 82 01/11/2020 9:02 AM ANALYST BUSINESS ANALYSIS Temperature 36.7 ??C (98.1 ??F) 01/11/2020 6:26 AM CS T Respiratory Rate 19 01/11/2020 6:26 AM ANALYST BUSINESS ANALYSIS Oxygen Saturation 98% 01/11/2020 9:02 AM ANALYST BUSINESS ANALYSIS Inhaled Oxygen Concentration - - Weight 100.4 kg (221 lb 5.5 oz) 01/11/2020 6:26 AM ANALYST BUSINESS ANALYSIS Height 158.8 cm (5' 2.5) 01/11/2020 6:26 AM ANALYST BUSINESS ANALYSIS Body Mass Index 39.84 01/11/2020 6:26 AM ANALYST BUSINESS ANALYSIS Plan of Treatment Health Maintenance Due Date [...] age 18+ 11/14/2018 11/14/2017 COVID-19 vaccine series ( season) 2023 Influenza for age 50-64 11/09/2023 Pneumococcal series for age 6-64 Aged Out 11/19/19 07 No longer eligible based on patient's age to complete this topic Tdap Completed 03/23/2008 Advance Directives * Full Code (Latest Code Status on File) Date Activated Date Inactivated Comments 02/11/2014 6:07 AM 02/11/2014 11:51 AM Care Teams Second Miller Relationship Specialty Start Date End Date Ivania Mendiola PA PCP - General Physician Pizza Maker 11/10/18
--- OUTSIDE RECORDS SUMMARY | 2023-12-02 13:51 | XMS_ITS ---
Author Organization [facility] Address [address] [place] [address] Care Team Providers Care Commercial Representative Name Role Phone Unavailable Unavailable Unavailable Surgery Details Not on file Complications Check Surgery Details section. Procedure Estimated Blood Loss Check Surgery Details section. Procedure Findings Check Surgery Details section. Procedure Specimens Taken Check Surgery Details section.
--- OUTSIDE RECORDS SUMMARY | 2023-12-02 13:51 | XMS_ITS | Encounter Summary ---
Author Organization [facility] Address [address] [place] [address] Care Team Providers Care Uniform Patrol Police Officer Name Role Phone Catherine Reid APRN C.NKeciaPKecia Primary Care Provi robert Encounter Details Date Type Department Care Team (Late st Contact Info) Description 01/23/2016 Historical Ophthalmology [facility] Ronald Vera Jr., M.D. [address] [place] [phone] Social History Tobacco Use Types Packs/Day Years Used Date Smoking Tobacco: Never Assessed Sex and Gender Information Value Date Recorded Sex Assigned at Female 02/13/2017 6:16 AM TELEPATHIST Gender Identity Female 02/13/2017 6:16 AM TELEPATHIST Sexual Orientation Straight 02/13/2017 6: 16 AM TELEPATHIST documented as of this encounter Progress Notes [...] ? Eyestrain CDM Reports - EYEGEN Id: [id number] Status: Fnl documented in this encounter Plan [...] documented as of this encounter Care Teams Uniform Patrol Police Officer Relationship Specialty Start Date End Date Catherine Reid APRN, C.N.P. [address] [place] [phone] PCP - General 05/25/20 documented as of this encounter
--- OUTSIDE RECORDS SUMMARY | 2023-12-02 13:51 | XMS_ITS | Encounter Summary ---
Author Organization [facility] Address [address] [place] [address] Care Team Providers Care Powerhouse Mechanic Apprentice Name Role Phone Catherine Reid APRN, C.N.P. Primary Care Provi robert Encounter Details Date Type Department Care Team (Late st Contact Info) Description 09/16/2023 Orders Only [facility] PCP [facility] MNT Catherine Reid APRN, C.N.P. [address] [place] [id number] Diabetes Mellitus Type 2 (HCC) Social History [...] How often do you attend chur or presybeterian services? More than 4 times per year 11/16/2021 Do you belong to any clubs o r organizations such as mandaen groups, unions, fraternal or athletic groups, or [...] Answer Date Recorded PHQ-2 Score 0 11/27/2022 [facility] Occupat ional Health - Occupational [...] your living situation today? [facility] a [facility] place to live 11/27/2022 Education Answer Date Recorded What is the highest level of school you have completed or the highest degree you have received? Some college, no degree 11/16/2021 Sex and Gender Information Value Date Recorded Sex Assigned at Female 02/13/2017 6:16 AM CRIMINALIST TECHNICIAN Gender Identity Female 02/13/2017 6:16 AM CRIMINALIST TECHNICIAN Sexual Orientation Straight 02/13/2017 6: 16 AM CRIMINALIST TECHNICIAN documented as of this encounter Plan of [...] (HCC) documented in this encounter Care Teams Powerhouse Mechanic Apprentice Relationship Specialty Start Date End Date Catherine Reid APRN, C.N.P. [address], [place] [address] PCP - General 05/25/20 documented as of this encounter
--- OUTSIDE RECORDS SUMMARY | 2023-12-02 13:51 | XMS_ITS | Encounter Summary ---
Author Organization [facility] Address [address] [place] [address] Care Team Providers Care Instructional Technology Facilitator Name Role Phone Catherine Reid APRN, C.N.P. Primary Care Provi robert Encounter Details Date Type Department Care Team (Late st Contact Info) Description 10/07/2023 Clinical Communication Department of Family Medicine, [facility] [place], in [place], [place] [address] [place] [address] Catherine Reid APRN, C.N.P. [address] [place] [address] Social History Tobacco Use Types Packs/Day Years [...] often do you attend chur ch or faith services? More than 4 times per year 11/16/2021 Do you belong to any clubs o r organizations such as moravian groups, unions, fraternal or athletic groups, or [...] Answer Date Recorded PHQ-2 Score 0 11/27/2022 [facility] of Occupat ional Health - Occupational [...] your living situation today? I have a [facility] place to live 11/27/2022 Education Answer Date Recorded What is the highest level of school you have completed or the highest degree you have received? Some college, no degree 11/16/2021 Sex and Gender Information Value Date Recorded Sex Assigned at Female 02/13/2017 6:16 AM AERONAUTICAL DRAFTER Gender Identity Female 02/13/2017 6:16 AM AERONAUTICAL DRAFTER Sexual Orientation Straight 02/13/2017 6: 16 AM AERONAUTICAL DRAFTER documented as of this encounter Plan of Treatment Not on file documented as of this encounter Visit Diagnoses Not on filedocumented in this encounter Care Teams Instructional Technology Facilitator Relationship Specialty Start Date End Date Catherine Reid APRN, C.N.P. [address] [place] [address] PCP - General 05/25/20 documented as of this encounter
--- OUTSIDE RECORDS SUMMARY | 2023-12-02 13:51 | XMS_ITS | Referral Summary ---
Author Organization [facility] Address [address] [place] [address] Care Team Providers Care Oil And Gas Specialist Name Role Phone Catherine Reid APRN, C.N.P. Primary Care Provi robert Source Comments Patient records contain information from all sites at [facility]. For routine questions regarding patient records, call [phone] during business hours, M-F 8:00 AM - 5:00 PM Central Time. Record requests for emergency care only can be directed to [phone] at any time.[facility] Encounters Date Type Department Care Team Description 10/07/2023 Clinical Communication Department of Family Medicine, [facility], in [place], [place] [address] [place] [address] Catherine Reid APRN, C.N.P. 09/16/2023 Orders Only [facility] Reid APRN, C.N.P. Diabetes Mellitus Type 2 (HCC) from Last 3 Months Allergies Active Allergy [...] often do you attend chur ch or confucianism services? More than 4 times per year 11/16/2021 Do you belong to any clubs o r organizations such as latter day groups, unions, fraternal or athletic groups, or [...] Answer Date Recorded PHQ-2 Score 0 11/27/2022 [facility] of Occupat ional Health - Occupational Stress [...] money to buy more. Never true 11/28/19 23 Within the past 12 months, t [...] your living situation today? I have a [facility] place to live 11/27/2022 Education Answer Date Recorded What is the highest level of school you have completed or the highest degree you have received? Some college, no degree 11/16/2021 Sex and Gender Information Value Date Recorded Sex Assigned at Female 02/13/2017 6:16 AM SOCIAL SECRETARY Gender Identity Female 02/13/2017 6:16 AM SOCIAL SECRETARY Sexual Orientation Straight 02/13/2017 6: 16 AM SOCIAL SECRETARY Last Filed Vital Signs Vital Sign Reading [...] HCV PCR, S Routine 02/13/2017 5:01 PM SOCIAL SECRETARY Health Maintenance Examination Adult from Last 3 [...] Screening Mammogram ASSESSMENT: BI-RADS: 1: Negative. Yue MEEKSG BI PROCEDURE S * HPV with Genotyping, [...] correlated with patient's history, clinical presentation, and PLAYER DEVELOPMENT MANAGER cytology report. 12/03/2022 2:43 PM CDT 12/04/2022 6:39 AM CDT Catherine Reid APRN, C.N.P. LAB MICROBI OLOGY - GENERAL ORDERABLES [facility] [address] [place] [address], [facility] [address] [address] [place] [address] * (ABNORMAL) Lipid Panel (11/27/2022 7:18 AM [...] Reid APRN C.N.PKecia LAB BLOOD A DD-ON [facility] [address] [place] [address], [facility] [place] [address] [place] [address] * (ABNORMAL) Hemoglobin A1c (11/27/2022 7:18 AM [...] 7:18 AM CDT 11/27/2022 7:32 AM CDT Fátima Tran APRNP. LAB BLOOD A DD-ON [facility] [address] [place] [address], [place] [facility] [address] [place] [address] * (ABNORMAL) Basic Metabolic Panel (11/27/2022 7:18 [...] 7:18 AM CDT 11/27/2022 7:32 AM CDT Fátima Tran APRNP. LAB BLOOD A DD-ON Performing Organization Address [facility] Co de Phone Number [facility] [address] [place] [address], [facility] [place] [address] [place] [address] * Albumin, Random, Urine (11/27/2022 7:13 AM [...] LAB URINE O RDERABLES Performing Organization Address [facility] Co de Phone Number [facility] [address] [place] [address], [place] [facility] [place] [address], [place] [address] * HCV Ab Scrn w/Reflex to HCV PCR (02/13/2017 5:01 PM SOCIAL SECRETARY) HCV Ab Screen, S Negative Negative 02/14/2017 8:25 AM SOCIAL SECRETARY [facility] [place] Comment:Lytljt-kf-znspku rat io is <1.00. Blood (Blood, Venous) 02/13/2017 5:01 PM SOCIAL SECRETARY 02/14/2017 7:09 AM SOCIAL SECRETARY Yee Fernandez M.D. LAB MICROBIOLOGY - B LOOD ORDERABLES Performing Organization Address City/[facility]/ZIP Co de Phone Number [facility] [address] [place] [address] from Last 3 Months or Most Recently Relevant to Health Maintenance Care Teams Oil And Gas Specialist Relationship Specialty Start Date End Date Catherine Reid APRN, C.N.P. [address] [phone] PCP - General 05/25/20
--- NOTE | 2023-12-02 14:00 | CRLHL7_ITS ---
For Patients: As a result of the Century Cures Act, medical imaging exams and procedure reports are released immediately into your electronic medical record. You may view this report before your referring provider. If you have questions, please contact your health care provider. BILATERAL SCREENING MAMMOGRAM WITH COMPUTER-AIDED DETECTION AND TOMOSYNTHESIS TECHNIQUE: CC and MLO views were obtained. These mammographic images have been obtained using full-field digital technique. These mammographic images were interpreted with the benefit of computer-aided detection. Breast Tomosynthesis was used in this interpretation. COMPARISON FILM: 01/01/23, 11/16/21, 02/21/21. FINDINGS: There are scattered areas of fibroglandular density. IMPRESSION: There is no radiographic evidence for malignancy. ASSESSMENT: BI-RADS Category 1: Negative RECOMMENDATION: Routine screening mammogram in 1 year. A lay language report of this examination will be provided to the patient. Michael Saez M.D. Diagnostic Radiologist [email or web address] SP/Dictated by: Michael Saez MD @ 12/08/2023 12:26:00 PM (Electronically Signed)
== END 2023-12-02 13:48 | disposition home or self-care (01) ==
LOC: MAMMO 13:48
PROVIDERS: PCP Registered Nurse; Visit Provider Registered Nurse
DX: Z12.31 Encounter for screening mammogram for malignant neoplasm of breast (principal)
CPT/HCPCS: 77063; 77067

== ENCOUNTER 2024-01-08 18:49 | Outpatient (CLI) | payer OTHER, SELFPAY ==
--- OUTSIDE RECORDS SUMMARY | 2024-01-08 18:52 | XMS_ITS | Clinical Summary ---
Author Organization [facility] Address [address] [place] [address] Care Team Providers Care Sawyer Cork Slabs Name Role Phone Catherine Reid APRN C.N.PKecia Primary Care Provi robert Source Comments Patient records contain information from all sites at [facility]. For routine questions regarding patient records, call [phone] during business hours, M-F 8:00 AM - 5:00 PM Central Time. Record requests for emergency care only can be directed to [phone] at any time.[facility] Allergies Active Allergy Reactions Criticality Noted Date Comments Erythromycin Rash 01/08/2012 Rash, Itching, dizziness, headache Metformin Palpitations 08/15/2022 Sulfa (Sulfonamide Antibiotics) Rash 01/08/2012 Rash, Itching, dizziness, headache Medications * This document contains information received from the source organization and may not represent a complete record from that organization. ibuprofen (ADVIL,MOTRIN) 200 mg tablet Take 800 mg by mouth every 8 (eight) hours as needed. 0 Active Accu-Chek Guide strips 2 test daily. 0 Active acetaminophen (TYLENOL) 500 mg tablet Take 1,000 mg by mouth every 6 (six) hours as needed for pain. Active neomycin-polymy connor B-dexameth (MAXITROL) 3.5 mg/g-10,000 unit/g-0.1 % ophthalmic ointment Apply to both eyelids twice a day. 3.5 g 1 2 Active Additional Information Patient taking differently: As needed, Apply to both eyelids twice a day., Reported on 11/16/2021 DME CPAP DME Order Active fluocinonide (LIDEX) 0.05 % ointmentIndicat ions:Eczema Apply 1 application topically 2 (two) times a day as needed for irritation or rash. Avoid face and groin. 30 g 1 2 Active cholecalciferol (Vitamin D3) 50 mcg (2,000 [...] strips) 1 test daily. 100 test 3 4 03/24/19 25 Active lancetsIndicati ons:Diabetes Mellitus Type 2 (HCC) Test two times a day 200 each 3 4 Active valACYclovir (VALTREX) 1000 mg tablet Take 1 tablet (1,000 mg total) by mouth 3 (three) times a day. 21 tablet 4 Active Active Problems Problem Noted Date Diagnosed [...] Encounters Date Type Department Care Team Description 01/08/2024 Nurse Triage Department of Family Medicine, [facility], in [place], [place] [address] [phone] FenJyoti thomas R.N. Urinary Symptom 12/30/2023 Clinical Communication Department of Family Medicine, [facility], in [place], [place] [address] [facility] [place] [phone] Catherine Reid, JAYME, C.N.P. Health Maintenance 12/09/2023 Orders Only [facility] PCP [facility] MNT Catherine Reid, JAYME, C.N.P. Screening Mammogram Breast Cancer from Last 3 Months Immunizations Name Administration [...] often do you attend chur ch or taoism services? More than 4 times per year 11/16/2021 Do you belong to any clubs o r organizations such as episcopalian groups, unions, fraternal or athletic groups, or [...] Answer Date Recorded PHQ-2 Score 0 11/27/2022 [facility] [place] of Occupat ional Health - Occupational Stress [...] have received? 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 agueda e Last Filed Vital Signs Vital Sign Reading [...] 3 - 19+ 3-dose series) 01/28/2006 12/31/2005 Pneumococcal vaccine (0-64 years) (2 of 2 - PCV) 11/19/2007 11/18/2006 Depression Screening (Annual PHQ-2) 03/10/2023 Dilated Eye Exam 03/12/2023 03/12/2022 (Per formed elsewhere), 03/26/2021 (Performed elsewhere), 08/06/2019, Additional history exists Hemoglobin A1C 05/28/2023 11/27/2022, 09/0 11/2021, 02/21/2021, Additional history exists COVID-19 Vaccine (1 - season) 2023 Creatinine Level (Kidney Function Test) 11/28/2023 11/27/2022, 11/16/2021, 05/28/2020, Additional history exists Lipid (Cholesterol) Screening 11/28/2023 11/27/2022, 11/16/2021, 02/17/2020, Additional history exists Urine Albumin 11/28/2023 11/27/2022, 02/07, 02/23/2018, Additional history exists Diabetic Office Visit with Foot Exam 12/04/2023 12/03/2022, 02/21/2021 Visit: Chronic Disease, age 18+ 12/04/2023 12/03/2022 Influenza Vaccine (#1) 2023 , 12/08/2018, 11/21/2017, Additional history exists Mammogram 01/02/2024 01/01/2023, 11/2021, 02/21/2021, Additional history exists Colonoscopy 02/12/2024 02/11/2014 Colorectal Cancer Screening 02/12/2024 Office Visit for Blood Pressure Check / Re-check 08/20/2024 08/21/2023 Cervical/Vaginal Cancer Screening 12/04/2027 12/03/2022, 12/03/2022, 02/16/2018, Additional history exists DTaP,Tdap,and Td Vaccines (4 - Td or Tdap) 02/18/2029 02/18/2019, 03/23/2008, 03/23/2008 Hepatitis C Screening Completed 02/13/2017 Zoster Vaccines Completed 08/13/2019, 03/17/2019 IPV Vaccines Aged Out No longer eligi ble based on patient's age to complete this topic Procedures Procedure Name Priority Date/Time Associated Diagnosis [...] HCV PCR, S Routine 02/13/2017 5:01 PM MC KAY STITCHER Health Maintenance Examination Adult from Last 3 [...] ASSESSMENT: BI-RADS: 1: Negative. Yue Laboy M.D. IMG BI PROCEDURES Final Result * HPV with Genotyping, PCR, ThinPrep (12/03/2022 [...] correlated with patient's history, clinical presentation, and GAS MAIN FITTER cytology report. 12/03/2022 2:43 PM CDT 12/04/2022 6:39 AM CDT us Catherine Reid APRN C.N.PKecia LAB MICROBIOLOGY - GENERAL ORDERABLES Final Result [facility] [address] [place] [address], [facility] [address] [place] [address] * (ABNORMAL) Lipid Panel (11/27/2022 7:18 AM [...] CDT Catherine Reid APRN, C.N.P. LAB BLOOD ADD-ON Fi nal Result [facility] [address] [address], [facility] in [place] [address] [address] * (ABNORMAL) Hemoglobin A1c (11/27/2022 7:18 AM [...] 7:18 AM CDT 11/27/2022 7:32 AM CDT us Catherine Reid APRN, C.N.P. LAB BLOOD ADD-ON Fi nal Result [facility] [address] [place] [address], [place] [facility] [place] [address] [place] [address] * (ABNORMAL) Basic Metabolic Panel (11/27/2022 7:18 [...] 7:18 AM CDT 11/27/2022 7:32 AM CDT us Catherine Reid APRN, C.N.P. LAB BLOOD ADD-ON Fi nal Result [facility] [address] [place] [address], [facility] [place] [address] [place] [address] * Albumin, Random, Urine (11/27/2022 7:13 AM [...] 7:13 AM CDT 11/27/2022 7:51 AM CDT us Catherine Reid APRN, C.N.PKecia LAB URINE ORDERABLE S Final Result Performing Organization Address [facility] Co de Phone Number [facility] [address] [place] [address], [facility] [place] [address] [place] [phone] * HCV Ab Scrn w/Reflex to HCV PCR (02/13/2017 5:01 PM MC KAY STITCHER) HCV Ab Screen, S Negative Negative 02/14/2017 8:25 AM MC KAY STITCHER [facility] Comment:Nqtxhu-fi-zicolv rat io is <1.00. Blood (Blood, Venous) 02/13/2017 5:01 PM MC KAY STITCHER 02/14/2017 7:09 AM MC KAY STITCHER us Yee Fernandez M.D. LAB MICROBIOLOGY - BLOOD ORD ERABLES Final Result [facility] [address] [place] [address] from Last 3 Months or Most Recently Relevant to Health Maintenance Insurance [facility] [place] [id number] Care Teams Sawyer Cork Slabs Relationship Specialty Start Date End Date Catherine Reid APRN, C.N.P. [address] [facility] [place] [phone] PCP - General 05/25/20
--- OUTSIDE RECORDS SUMMARY | 2024-01-08 18:52 | XMS_ITS | Encounter Summary ---
Author Organization [facility] Address [address] [place] [address] Care Team Providers Care Clamshell Operator Name Role Phone Catherine Reid APRN, C.N.P. Primary Care Provi robert Reason for Visit * Reason Onset Date Comments Health Maintenance 12/30/2023 Encounter Details Date Type Department Care Team (Latest Contact Info) Description 12/30/2023 Clinical Communication Department of Family Medicine, [facility], in [place], [place] [address] [phone] Catherine Reid APRN, C.N.P. [address], [place] [phone] Health Maintenance Social History Tobacco Use Types Packs/Day Years [...] How often do you attend chur or baptism services? More than 4 times per year [...] Answer Date Recorded PHQ-2 Score 0 11/27/2022 [facility] of Occupat ional Health - Occupational Stress [...] your living situation today? I have a [facility] place to live 11/27/2022 Education Answer Date Recorded What is the highest level of school you have completed or the highest degree you have received? 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 - 12/30/2023 1:41 PM CDT I reached out to the patient today via phone call and portal message and I was unable to reach the patient. This is the 1st contact by the [facility] team to schedule preventive care services. The preventive care topics I outreached about include: Diabetes Follow Up Visit Basic Metabolic Panel, Hemoglobin A1C, Lipid Panel, and Urine, Albumin The outcome of this communication includes: Left Message and Sent Portal Message The PHS team will contact the patient again in 2 weeks. Next Primary Care appointment: does not have a visit scheduled in Primary Care Last appointment with their PCP: 12/03/2022 Additional services offered: None Yesy Espino LPN Preventative Health Specialist documented in this encounter Plan of Treatment Not on file documented as of this encounter Visit Diagnoses Not on filedocumented in this encounter Care Teams Clamshell Operator Relationship Specialty Start Date End Date Catherine Reid APRN, C.N.P. [address] [place] [phone] PCP - General 05/25/20 documented as of this encounter
--- OUTSIDE RECORDS SUMMARY | 2024-01-08 18:52 | XMS_ITS | Encounter Summary ---
Author Organization [facility] Address [address] [place] [address] Care Team Providers Care Teacher Visually Impaired Name Role Phone Catherine Reid APRN C.N.P. Primary Care Provi robert Reason for Visit * Reason Onset Date Comments Urinary Symptom 01/08/2024 Encounter Details Date Type Department Care Team (Late st Contact Info) Description 01/08/2024 Nurse Triage Department of Family Medicine, , in [place], [place] [address] [place] [phone] Jyoti Russ R.N. [address] [place] [address] Urinary Symptom Social History Tobacco Use Types Packs/Day Years [...] often do you attend chur ch or baptist services? More than 4 times per year 11/16/2021 Do you belong to any clubs o r organizations such as gnosticism groups, unions, fraternal or athletic groups, or [...] Answer Date Recorded PHQ-2 Score 0 11/27/2022 [facility] of Occupat ional Health - Occupational Stress [...] your living situation today? I have a [facility] place to live 11/27/2022 Education Answer Date Recorded What is the highest level of school you have completed or the highest degree you have received? 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 - 01/08/2024 4:43 PM CDT Chief Complaint / Reason for Call Patient is a 58 y.o. female calling regarding Urinary Symptom. Assessment Concern: Urinary frequency, lower abdominal discomfort, possible low grade fever, general malaise and lower back pain although patient says she had chronic lower back pain and is unsure if anything is worse than usual or new. Present for: Today Home cares tried: Pushing fluids Calling to request: Treatment The recommended disposition is See a health care provider within 24 hours. Patient was warm transferred to, Bran, Patient Appointment Floorworker at the clinic for further assistance. Patient did not meet the qualifications of the Possible Urinary Tract Infection protocol. Patient did not meet protocol because she is diabetic . Reason for Disposition Urinating more frequently than usual (i.e., frequency) OR new-onset of the feeling of an urgent need to urinate (i.e., urgency) Protocols used: Urinary Bwctheox-LURZU-VC Care Advice Patient/Caregiver understands and will follow care advice?: Yes, able to teach back Urinary Pppffciz-TQKGQ-FB Nurse Jyoti Connors Jan 08, 2024 04:50 PM Care Advice SEE PCP WITHIN 24 HOURS: DRINK PLENTY OF LIQUIDS: * Drink plenty of liquids. It is important to stay well-hydrated. * A healthy adult should drink 8 cups (240 ml) or more of liquid each day. * How can you tell if you are drinking enough liquids? The goal is to keep the urine clear or light-yellow in color. If your urine is bright yellow or dark yellow, you are probably not drinking enough liquids. * Caution: Some medical problems require fluid restriction. CALL BACK IF: * Fever occurs * Unable to urinate and bladder feels full * You become worse CARE ADVICE given per Urinary Symptoms (Adult) guideline. documented in this encounter Plan of Treatment Not on file documented as of this encounter Visit Diagnoses Not on filedocumented in this encounter Care Teams Teacher Visually Impaired Relationship Specialty Start Date End Date Catherine Reid APRN, C.N.P. [address] [place] [address] PCP - General 05/25/20 documented as of this encounter
--- OUTSIDE RECORDS SUMMARY | 2024-01-08 18:52 | XMS_ITS ---
Author Organization [facility] Address [address] [place] [address] Care Team Providers Care Sexual Assault Counsellor Name Role Phone Unavailable Unavailable Unavailable Surgery Details Not on file Complications Check Surgery Details section. Procedure Estimated Blood Loss Check Surgery Details section. Procedure Findings Check Surgery Details section. Procedure Specimens Taken Check Surgery Details section.
--- OUTSIDE RECORDS SUMMARY | 2024-01-08 18:52 | XMS_ITS | Clinical Summary ---
Author Organization [facility] Address [place], [place] [address] Care Team Providers Care Bore Mill Operator For Plastic Name Role Phone Ivania Mendiola Primary Care Provider Unavailable Allergies Active Allergy Reactions Criticality Noted Date [...] Comments Blood Pressure 124/67 01/11/2020 8:49 AM GASTROINTESTINAL TECHNICIAN Pulse 82 01/11/2020 9:02 AM GASTROINTESTINAL TECHNICIAN Temperature 36.7 ??C (98.1 ??F) 01/11/2020 6:26 AM CS T Respiratory Rate 19 01/11/2020 6:26 AM GASTROINTESTINAL TECHNICIAN Oxygen Saturation 98% 01/11/2020 9:02 AM GASTROINTESTINAL TECHNICIAN Inhaled Oxygen Concentration - - Weight 100.4 kg (221 lb 5.5 oz) 01/11/2020 6:26 AM GASTROINTESTINAL TECHNICIAN Height 158.8 cm (5' 2.5) 01/11/2020 6:26 AM GASTROINTESTINAL TECHNICIAN Body Mass Index 39.84 01/11/2020 6:26 AM GASTROINTESTINAL TECHNICIAN Plan of Treatment Health Maintenance Due Date [...] age 18+ 11/14/2018 11/14/2017 COVID-19 vaccine series (2023- season) 2023 Influenza for age 50-64 11/09/2023 Pneumococcal series for age 6-64 Aged Out 11/19/19 07 No longer eligible based on patient's age to complete this topic Tdap Completed 03/23/2008 Advance Directives * Full Code (Latest Code Status on File) Date Activated Date Inactivated Comments 02/11/2014 6:07 AM 02/11/2014 11:51 AM Care Teams Bore Mill Operator For Plastic Relationship Specialty Start Date End Date Ivania Mendiola PA PCP - General Physician Licensed Veterinary Technician 11/10/18
--- OUTSIDE RECORDS SUMMARY | 2024-01-08 18:52 | XMS_ITS | Encounter Summary ---
Author Organization [facility] Address [address] [place] [address] Care Team Providers Care Academic Affairs Dean Name Role Phone Catherine Reid APRN C.NKeciaPKecia Primary Care Provi robert Encounter Details Date Type Department Care Team (Late st Contact Info) Description 01/23/2016 Historical Ophthalmology [facility] Ronald Vera Jr., M.D. [address] [place] [phone] Social History Tobacco Use Types Packs/Day Years Used Date Smoking Tobacco: Never Assessed Comments Unknown Sex and Gender Information Value Date Recorded Sex Assigned at Female 02/13/2017 6:16 AM APPLIANCE SALES ASSOCIATE Legal Sex Female 4:29 AM APPLIANCE SALES ASSOCIATE Gender Identity Female 02/13/2017 6:16 AM APPLIANCE SALES ASSOCIATE Sexual Orientation Straight 02/13/2017 6: 16 AM APPLIANCE SALES ASSOCIATE documented as of this encounter Progress Notes [...] ? Eyestrain CDM Reports - EYEGEN Id: [id number] Status: Fnl documented in this encounter Plan [...] documented as of this encounter Care Teams Academic Affairs Dean Relationship Specialty Start Date End Date Catherine Reid APRN, C.N.P. [address] [place] [phone] PCP - General 05/25/20 documented as of this encounter
--- OUTSIDE RECORDS SUMMARY | 2024-01-08 18:52 | XMS_ITS | Encounter Summary ---
Author Organization [facility] Address [address] [place] [address] Care Team Providers Care Supervisor Boilermaking Shop Name Role Phone Catherine Reid APRN, C.N.P. Primary Care Provi robert Reason for Referral * Outpatient (Routine) - Authorized Specialty Diagnoses / Procedures Referred By Contac t Referred To Contact Diagnoses Screening Mammogram Breast Cancer Procedures BI Breast Screening Bilateral with Tomosynthesis Catherine Reid APRN, C.N.P. [address] [place] [address] Phone: tel: fax: [facility] Referral ID Status Reason Start Date Expiration Date V isits Requested Visits Authorized [id number] Authorized 12/09/2023 12/08/2024 1 1 Encounter Details Date Type Department Care Team (Late st Contact Info) Description 12/09/2023 Orders Only [facility] P[facility] MNT Catherine Reid APRN, C.N.P. [address] [place] [address] Screening Mammogram Breast Cancer Social History Tobacco Use Types Packs/Day Years [...] often do you attend chur ch or congregation services? More than 4 times per year 11/16/2021 Do you belong to any clubs o r organizations such as yazdanism groups, unions, fraternal or athletic groups, or [...] Answer Date Recorded PHQ-2 Score 0 11/27/2022 [facility] of Occupat ional Health - Occupational [...] your living situation today? I have a [facility] place to live 11/27/2022 Education Answer Date Recorded What is the highest level of school you have completed or the highest degree you have received? 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 [address] [place] [phone] PCP - General 05/25/20 documented as of this encounter
--- OUTSIDE RECORDS SUMMARY | 2024-01-08 18:52 | XMS_ITS | Encounter Summary ---
Author Organization [facility] Address [address] [place] [address] Care Team Providers Care Tissue Inserter Name Role Phone Catherine Reid APRN, C.N.P. Primary Care Provi robert Encounter Details Date Type Department Care Team (Late st Contact Info) Description 10/07/2023 Clinical Communication Department of Family Medicine, [facility], in [place], [place] [address] [place] [address] Catherine Reid APRN, C.N.P. [address] [place] [address] Social History Tobacco Use Types [...] often do you attend chur ch or lutheran services? 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 [address] [place] [phone] PCP - General 05/25/20 documented as of this encounter
--- OUTSIDE RECORDS SUMMARY | 2024-01-08 18:52 | XMS_ITS | Referral Summary ---
Author Organization [facility] Address [address] [place] [address] Care Team Providers Care Groundskeeper Name Role Phone Catherine Reid APRN, C.N.P. Primary Care Provi robert Source Comments Patient records contain information from all sites at [facility]. For routine questions regarding patient records, call [phone] during business hours, M-F 8:00 AM - 5:00 PM Central Time. Record requests for emergency care only can be directed to [phone] at any time.[facility] Encounters Date Type Department Care Team Description 01/08/2024 Nurse Triage Department of Family Medicine, [facility], in [place], [place] [address] [phone] Jyoti Russ R.N. Urinary Symptom 12/30/2023 Clinical Communication Department of Family Medicine, [facility], in [place], [place] [address] [phone] Catherine Reid APRN, C.N.P. Health Maintenance 12/09/2023 Orders Only [facility] Reid APRN, C.N.P. Screening Mammogram Breast Cancer from Last 3 Months Allergies Active Allergy [...] often do you attend chur ch or hinduism services? More than 4 times per year 11/16/2021 Do you belong to any clubs o r organizations such as anabaptism groups, unions, fraternal or athletic groups, or [...] Answer Date Recorded PHQ-2 Score 0 11/27/2022 [facility] - Occupational Stress [...] your living situation today? I have a [facility] place to live 11/27/2022 Education Answer Date Recorded What is the highest level of school you have completed or the highest degree you have received? Some college, no degree 11/16/2021 Comments No Sex and Gender Information Value Date Recorded Sex Assigned at Female 02/13/2017 6:16 AM [employer] DEVELOPER Legal Sex Female 4:29 AM [employer] DEVELOPER Gender Identity Female 02/13/2017 6:16 AM [employer] DEVELOPER Sexual Orientation Straight 02/13/2017 6: 16 AM [employer]GNOS DEVELOPER Occupation Industry Job Start Date Job End [...] HCV PCR, S Routine 02/13/2017 5:01 PM [employer] DEVELOPER Health Maintenance Examination Adult from Last 3 [...] Annual Screening Mammogram ASSESSMENT: BI-RADS: 1: Negative. us Yue Laboy M.D. IMG BI PROCEDURES Final [...] correlated with patient's history, clinical presentation, and ROOM CLEANER cytology report. 12/03/2022 2:43 PM CDT 12/04/2022 6:39 AM CDT us Catherine Reid APRN, C.N.P. LAB MICROBIOLOGY - GENERAL ORDERABLES Final Result [facility] [address] [place] [address], [facility] [address] [address] * (ABNORMAL) Lipid Panel (11/27/2022 7:18 AM [...] C.N.P. LAB BLOOD ADD-ON Fi nal Result [facility] [address] [facility] [place] [address], [place] [facility] [place] [address] [place] [address] * (ABNORMAL) Hemoglobin A1c (11/27/2022 7:18 AM [...] C.N.P. LAB BLOOD ADD-ON Fi nal Result [facility] [address] [place] [address], [facility] [place] [address] [place] [address] * (ABNORMAL) Basic Metabolic Panel (11/27/2022 7:18 AM CDT) Pathologist [facility] Potassium, P 4.9 3.6 - 5.2 mmol/L [...] C.N.P. LAB BLOOD ADD-ON Fi nal Result Performing Organization Address [facility]/ZIP Co de Phone Number [facility] [address] [place] [address], [facility] [place] [address] [place] [address] * Albumin, Random, Urine (11/27/2022 7:13 AM [...] 7:51 AM CDT us Catherine Reid APRN, C.N.P. LAB URINE ORDERABLE S Final Result Performing Organization Address [facility]/ZIP Co de Phone Number [facility] [address], [place] [address], [facility] [place] [address] [place] [address] [address] * HCV Ab Scrn w/Reflex to HCV PCR (02/13/2017 5:01 PM COGNOS DEVELOPER) HCV Ab Screen, S Negative Negative 02/14/2017 8:25 AM COGNOS DEVELOPER [facility] Comment:[id number]-tf-[id number] rat io is <1.00. Blood (Blood, Venous) 02/13/2017 5:01 PM [employer]GNOS DEVELOPER 02/14/2017 7:09 AM [employer]GNOS DEVELOPER us Yee Fernandez M.D. LAB MICROBIOLOGY - BLOOD ORD ERABLES Final Result [facility] [address] [place] [address] from Last 3 Months or Most Recently Relevant to Health Maintenance Insurance Ahorro Libre [facility] [address] [id number] Care Teams Groundskeeper Relationship Specialty Start Date End Date Catherine Reid APRN, C.N.P. [address] [phone] PCP - General 05/25/20
== END 2024-01-08 18:50 | disposition home or self-care (01) ==
LOC: NFLDUCREF 18:50
PROVIDERS: PCP Registered Nurse; Visit Provider Nurse Practitioner
DX: R30.0 Dysuria (principal)
CPT/HCPCS: 87086

== ENCOUNTER 2024-02-19 07:15 | Outpatient (CLI) | payer OTHER, SELFPAY ==
--- NOTE | 2024-02-19 08:35 | W.ANESCHARGE ---
Anesthesia Charges Start Date/Time Anesthesia Start Date: 02/19/24 Anesthesia Start Time: 08:05 Stop Date/Time Anesthesia Stop Date: 02/19/24 Anesthesia Stop Time: 08:36
--- NOTE | 2024-02-19 08:39 | W.ANESCHARGE ---
Anesthesia Charges Start Date/Time Anesthesia Start Date: 02/19/24 Anesthesia Start Time: 08:05 Stop Date/Time Anesthesia Stop Date: 02/19/24 Anesthesia Stop Time: 08:36
== END 2024-02-19 07:16 | disposition home or self-care (01) ==
LOC: OP CLINIC 07:16
PROVIDERS: PCP Registered Nurse; Visit Provider Surgery
DX: Z12.11 Encounter for screening for malignant neoplasm of colon (principal); K64.9 Unspecified hemorrhoids; K57.30 Diverticulosis of large intestine without perforation or abscess without bleeding
CPT/HCPCS: 00811; 45378; J2704

== ENCOUNTER 2024-03-12 14:41 | Outpatient (CLI) | payer OTHER, SELFPAY | END 2024-03-12 14:42 | disposition home or self-care (01) | PROVIDERS: PCP Registered Nurse; Visit Provider Registered Nurse | DX: M25.50 Pain in unspecified joint (principal) | CPT/HCPCS: 86038; 86039; 86140; 86200; 86431 ==

== ENCOUNTER 2024-04-22 15:15 | Outpatient (RCR) | payer OTHER, SELFPAY ==
--- NOTE | 2024-03-24 15:47 | OT.OPOE ---
OT Outpatient Ortho Eval OT Outpatient Ortho Eval* Start: 03/24/24 14:05 Freq: Status: Active Protocol: Document 03/24/24 14:05 CSS (Rec: 03/24/24 15:47 CSS [id number]) E-signed By Laura Corrigan, OTR/L OT OP Ortho Eval Details Complexity Complexity Low Insurance Information Insurance Information Workman's Comp Other Insurance [facility] Insurance Information Comments work comp claim number: [id number] Outpatient History/Precautions Current Condition/Medical Diagnosis Referring Provider Dr. 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 Pt notes difficulties with brushing teeth, donning and doffing underwear, pants, socks, bra, driving, and self -feeding. Pt feels left hand( dominant hand) is useless. Feels she is compensating a lot. She notes how rapid symptoms progressed and notes they progressed drastically. Notes difficulty with carrying items- gives example of carrying groceries. Notes L thumb is starting to lock and increased pain with pressure on thumb. Notes 4th digit on R hand is starting to lock randomly. Pt notes tip of L thumb gets numb and sometimes all fingers get numb. She notes waking up with numbness. States she has wrist splints for night and states that it caused more thumb pain in L hand. Pain Assessment Pain Pain Yes Pain Comments Rest: R: 0/10 L: 2/10 Activity (gripping): R: 6/10 L : 10/10 Range of Motion and Strength Wrist Range of Motion and Strength Wrist Range of Motion and Strength WNL in B wrists Hand/Finger/Thumb Range of Motion and Strength Hand/Finger/Thumb Range of Motion and L thumb IP flexion(before Strength locks): 33 degrees L 2nd-5th digits: WNL R digits: WNL (Pt does note that R 4th digit will randomly lock with flexion) Hand Pinch/Circular Knitter Helper Strength Hand Pinch/Circular Knitter Helper Strength Hand Pinch/Circular Knitter Helper Strength Left Hand,Right Hand Left Hand Circular Knitter Helper Strength Position 1 in Elbow 15 Flexion (lbs) Lateral Pinch Strength (lbs) 5 Three Point Pinch (lbs) 6 Tip Pinch Strength (lbs) 4 Right Hand Circular Knitter Helper Strength Position 1 in Elbow 25 Flexion (lbs) Lateral Pinch Strength (lbs) 12 Three Point Pinch (lbs) 11 Tip Pinch Strength (lbs) 7 OT Objective Data Hand Hand Dominance Left Observations/Posture/Limb Appearance Objective Observations noted increased swelling in L hand, specifically in L thumb Sensation Sensation Assessment Summary Comments notes varying numbness/ tingling in all finger tips; worse in AM Upper Extremity Special Tests Median Nerve-Carpal Tunnel Wrist Phalen Test Positive Left,Positive Right Wrist Tinel Test Positive Left,Positive Right Dexterity Dexterity Dexterity Left Hand,Right Hand Left Hand Scoring Times 9-Hole Peg Hand Test Scoring Time ( 25 seconds) Right Hand Scoring Times 9-Hole Peg Hand Test Scoring Time ( 22 seconds) OT Problems Problems Problems Decreased Strength,Decreased Range of Motion,Decreased Dexterity,Pain,Sensory Sensitivity,Lifting,Gripping, Pinching Other Problems Writing,Opening Containers, Dressing,Computer,Fasteners, Sleeping Patient Potential Good Assessment Assessment Assessment Pt is a 59 year old female who is referred to OT with diagnosis with bilateral carpal tunnel. Pt notes increased pain, weakness, and limited dexterity in hands. She notes numbness/tingling in both hands. She notes and demonstrates locking in L thumb and R ring finger with gripping activity. These listed symptoms are impacting her ability to complete ADLs/ IADLs. Pt would benefit from ongoing skilled OT to decrease pain, increase strength and dexterity, and trial conservative management with locking digits to prevent trigger finger release surgery . Pt appears highly motivated and willing to participate in therapy and work on HEP in order to progress and meet goals. Occupational Therapy Treatment Plan - OP Potential Rehabilitation Potential Good Set Goals Goals Set with Patient Yes Goals Goals Goals to be met by 06/16/24: 1) Pt will note 0/10 pain in B hands with activity. 2) Pt will demonstrate increased L dewaterer operator strength to 30# or more. 3) Pt will note no numbness/ tingling in B hands for 3 consistent sessions. 4) Pt will note locking of thumb and ring finger decrease to 3x a day or less with gripping activities without oval 8 splint. 5) Pt will verbalize and demonstrate competency of HEP in order to progress and meet goals. Treatment Plan Treatment Plan Evaluation,Edema Control, Iontophoresis,Joint Mobilization,Manual Therapy, Splinting,Ultrasound, Therapeutic Exercise, Therapeutic Activities,Self Care/Home Management,Education Expected Frequency 1-2x Week Expected Duration 12 weeks Comment Summary Upper Extremity Functional Index(UEFI)- Home Program Home Program Home Program Initiated Home Program Specifics compression gloves on bilateral hands; oval 8 splint on L thumb and R ring finger; median nerve glides for both hands; ice Certification Certification Statement I Certify That: Therapy Services Provided, Therapy Plan Established, Therapy Plan Reviewed Certification Information Clinic ID # [id number] Initial Certification Date 03/24/24 Recertification Due Date 06/16/24 Provider Signature Required Yes Provider Signature Shows Agreement With POC & Medical Necessity Physician NPI Number Write NPI# Here Physician Comment/Change Comment or Changes Physician Signature & Date Requested Please Sign/Date Here
--- NOTE | 2024-06-16 10:36 | REH.OT ---
Pt had trigger finger release completed on L thumb on 05/19/24. Pt told to reach out if she had any therapy needs or request new order from ortho provider. Will d/c pt from OT at this time.
== END 2024-06-16 10:44 | disposition home or self-care (01) ==
PROVIDERS: PCP Registered Nurse; Visit Provider Family Medicine
DX: G56.03 Carpal tunnel syndrome, bilateral upper limbs (principal); R20.0 Anesthesia of skin; M25.549 Pain in joints of unspecified hand; R53.1 Weakness; Z51.89 Encounter for other specified aftercare
CPT/HCPCS: 97035; 97110; 97140; 97165; 97535; X5282

== ENCOUNTER 2024-05-19 06:22 | Day surgery (SDC) | payer OTHER, SELFPAY ==
[2024-05-19] VITALS (7 sets, daily range): BP systolic 114–130; BP diastolic 65–79; PULSE 75–87; RESP 16; TEMP 36.8–36.9; O2SAT 92–95
[2024-05-19] MEDS: BUPIVACAINE 0.5% 30 ML INJECTION (06:55)
[2024-05-19] MEDS: ETHYL CHLORIDE 1 APPLICATION 1 APPLIC TOPICAL (06:55)
[2024-05-19] MEDS: LIDOCAINE 1%-EPI 1:100,000 20 ML INFILTRATI (06:55)
--- NOTE | 2024-05-19 07:24 | PM.ORPRC ---
Procedure Note Date of procedure: 05/19/24 Procedure: PREOPERATIVE DIAGNOSIS: 1. Left thumb flexor tenosynovitis - trigger thumb POSTOPERATIVE DIAGNOSIS: 1. Left thumb flexor tenosynovitis - trigger thumb PROCEDURE: 1. Left thumb flexor tendon sheath open release (A1 domenica) SURGEON: Greyson Heart MD. MANAGER OF FINANCE: Clair Rodriguez PA-C ANESTHESIA: Local anesthetic 4ml via 50:50 mixture of 1% Lidocaine with epi and 0.5% marcaine plain EBL: 2ml IMPLANTS: None TOURNIQUET: None COMPLICATIONS: None evident INDICATIONS: The patient is a pleasant 59-year-old female who has experienced left thumb catching/triggering for number of months. It has progressively gotten worse. Given the failure of nonoperative management, and how this affects daily life, surgery was recommended. DESCRIPTION OF PROCEDURE: Following a thorough discussion of risks, benefits, and alternatives consent was obtained and the operative digit(s) was marked. The patient was brought to the operating room and placed supine on the operating table. Local anesthesia induction was undertaken in preop holding. No antibiotics were administered as this was planned to be a local case only. Proper time-out was performed identifying proper patient, site, and procedure. The operative extremity was prepped and draped in the appropriate sterile fashion using ChloraPrep. An incision was made on the palmar surface of the hand overlying the MCP joint region of the appropriate digit(s) respecting the palmar creases being cautious not to cross these perpendicularly. Sharp incision through the skin, and blunt dissection through subcutaneous tissue allowing protection of crossing neurologic structures. The A1 domenica was visualized directly. It was incised sharply with a 15 blade. It was released completely from its distal to proximal extent under direct visualization. The tendon was inspected and found to be mildly striated consistent with some friction. Otherwise, it was intact. The tendon was removed out of the wound, and further inspected. The patient was asked to manually flex and extend the digits and showed no further catching. The catching which was visualized after tourniquet inflation, was no longer evident with reproduction of a manual fist and relaxation. Closure was performed with 4-O nylon in interrupted fashion. Soft dressings were applied, and the patient was transferred to the recovery room in stable condition. PLAN: 1. Encourage elevation of the operative extremity. 2. Range of motion and icing of the fingers and hand/wrist as tolerated/needed. 3. Ibuprofen/acetaminophen and/or oxycodone as needed for pain control. 4. Follow up with PA visit in 12-16 days for wound check and suture removal.
== END 2024-05-19 08:00 | disposition home or self-care (01) ==
LOC: OR 06:22
PROVIDERS: PCP Registered Nurse; Visit Provider Orthopaedic Surgery Sports Medicine
PROC: (CPT 26055; principal; 2024-05-19 07:15)
DX: M65.312 Trigger thumb, left thumb (principal); M65.842 Other synovitis and tenosynovitis, left hand
CPT/HCPCS: 26055; J0665

== ENCOUNTER 2024-05-20 15:19 | Outpatient (CLI) | payer OTHER, SELFPAY | END 2024-05-20 15:20 | disposition home or self-care (01) | PROVIDERS: PCP Registered Nurse; Visit Provider Family Medicine | DX: R10.32 Left lower quadrant pain (principal) | CPT/HCPCS: 80053; 86140 ==

== ENCOUNTER 2024-08-10 11:16 | Outpatient (CLI) | payer OTHER, SELFPAY ==
--- NOTE | 2024-08-10 11:30 | CRLHL7_ITS ---
For Patients: As a result of the Century Cures Act, medical imaging exams and procedure reports are released immediately into your electronic medical record. You may view this report before your referring provider. If you have questions, please contact your health care provider. Indication: Right lateral neck lump Technique: Grayscale and color Doppler ultrasound of the right lateral neck soft tissues performed. Comparison: None Findings: Hypoechoic solid nodule is present with internal vascularity within the subcutaneous tissues which measures 8 x 4 x 6 millimeters. Impression: Indeterminate solid nodule right lateral neck soft tissues which measures 8 x 4 [address] should be considered for further evaluation. Dictated by Michael Saez MD @ 08/10/2024 10:02:47 PM (Electronically Signed)
== END 2024-08-10 11:17 | disposition home or self-care (01) ==
LOC: US 11:16
PROVIDERS: PCP Registered Nurse; Visit Provider Registered Nurse
DX: R22.1 Localized swelling, mass and lump, neck (principal)
CPT/HCPCS: 76536

== ENCOUNTER 2024-08-24 14:33 | Outpatient (CLI) | payer OTHER, SELFPAY ==
--- NOTE | 2024-08-24 15:00 | CRLHL7_ITS ---
For Patients: As a result of the Century Cures Act, medical imaging exams and procedure reports are released immediately into your electronic medical record. You may view this report before your referring provider. If you have questions, please contact your health care provider. Indication: Technique: Routine soft tissue neck protocol. Omnipaque 350, 104 mL. Comparison: None. Findings: Parotid glands: Normal. Accessory parotid tissue/gland extends bilaterally over the masseter muscles. Submandibular glands: Normal. Thyroid: Normal. Pharynx: Normal nasopharynx, oropharynx and hypopharynx. Larynx and trachea: Normal. Lymph nodes: Bilateral multifocal shotty scattered lymph nodes all have a short axis diameter of 9 millimeters are less with the largest nodes being the jugulodigastric lymph nodes. No extra capsular extension or abnormal enhancement. No dominant nodules. Vessels: Normal. Soft tissues: Normal. Bones: Normal. Paranasal and mastoid sinuses: Bilateral maxillary sinus scattered mucosal thickening. Skull base and visualized brain: Normal. Lung apices: Normal. Impression: 1. No pathologic abnormality is demonstrated. 2. Accessory parotid tissue/gland extends bilaterally over the masseter muscles. This is a normal finding. 3. Bilateral multifocal shotty lymph nodes are all within normal anatomic variation. No dominant lymph nodes. 4. Bilateral maxillary sinus scattered mucosal thickening Please note that all CT scans at this facility use dose modulation, iterative reconstruction, and/or weight-based dosing when appropriate to reduce radiation dose to as low as reasonably achievable. Dictated by Bal Alberto MD @ 08/24/2024 4:17:05 PM (Electronically Signed)
[2024-08-24 15:03] LABS: Creatinine* 0.6 mg/dL (0.5-1.5); Estimated Glomerular Filt Rate 103 ml/min
== END 2024-08-24 14:34 | disposition home or self-care (01) ==
LOC: CT 14:35
PROVIDERS: PCP Registered Nurse; Visit Provider Registered Nurse
DX: R22.9 Localized swelling, mass and lump, unspecified (principal); J32.0 Chronic maxillary sinusitis
CPT/HCPCS: 36415; 70491; 82565; Q9967

== ENCOUNTER 2024-10-22 07:37 | Outpatient (CLI) | payer OTHER, SELFPAY | END 2024-10-22 07:38 | disposition home or self-care (01) | LOC: NFLDREF 10-26 17:29 | PROVIDERS: PCP Family Medicine; Referring Provider Registered Nurse; Visit Provider Family Medicine | DX: Z00.00 Encounter for general adult medical examination without abnormal findings (principal); E11.9 Type 2 diabetes mellitus without complications; Z13.21 Encounter for screening for nutritional disorder | CPT/HCPCS: 80053; 80061; 82043; 82306; 82570 ==

== ENCOUNTER 2025-01-25 13:50 | Outpatient (CLI) | payer OTHER, SELFPAY ==
--- NOTE | 2025-01-25 14:00 | CRLHL7_ITS ---
For Patients: As a result of the Century Cures Act, medical imaging exams and procedure reports are released immediately into your electronic medical record. You may view this report before your referring provider. If you have questions, please contact your health care provider. INDICATION: BILATERAL SCREENING MAMMOGRAM, ASYMPTOMATIC 60 Y/O FEMALE COMPARISON: 12/02/2023, 01/01/2023, 11/16/2021 TECHNIQUE: Digital mammogram in CC and MLO projections including computer-aided detection (CAD) and tomosynthesis. BREAST COMPOSITION: There are scattered areas of fibroglandular density. FINDINGS: No suspicious findings. ASSESSMENT: BI-RADS 1 Negative RECOMMENDATION: Annual screening mammogram. A lay language report of this examination will be provided to the patient. Dictated by: Michael Saez MD @ 01/26/2025 09:19:43 (Electronically Signed)
== END 2025-01-25 13:51 | disposition home or self-care (01) ==
LOC: MAMMO 13:50
PROVIDERS: PCP Family Medicine; Visit Provider Family Medicine
DX: Z12.31 Encounter for screening mammogram for malignant neoplasm of breast (principal)
CPT/HCPCS: 77063; 77067